=== PATIENT | male | born 1950 | race Caucasian/White ===

== ENCOUNTER 2019-04-25 17:48 | Inpatient (IN) | payer MEDICARE, OTHER ==
[2019-04-25] MEDS ORDERED: SODIUM CHLORIDE 0.9% 1000ML 1,000 ML IVS ONE ×2 (18:18→18:40)
[2019-04-25] MEDS ORDERED: PIPERACILLIN/TAZOBACTAM 3.375 GM in SODIUM CHLORIDE 0.9% 100ML 100 ML IVPB ONE (18:18)
--- NOTE | 2019-04-25 18:23 | ED.PDOC ---
History of Present Illness - General Chief Complaint: Fever Stated Complaint: altered mental status, fever Time Seen by Provider: 04/25/19 18:16 Source: patient, family Exam Limitations: no limitations Additional Information: Mister Stanton is a 69-year-old male who presents to the ED with a chief complaint per daughter of fever and confusion. patient is presently in rehabilitation status post trauma. Approximately 7 weeks ago patient fell from a high ladder and had an open book pelvic fracture, small subdural hemorrhage and subsequent mild cerebellar stroke. Patient was ultimately transferred to [facility] where he underwent an exploratory laparoscopy which showed no intra- abdominal pathology. Patient's pelvic fracture was repaired and patient was transferred to rehabilitation. Today in rehabilitation patient began having chills and shivers and when patient's daughter went to see him patient appeared confused. Daughter indicates that patient is fully back to his baseline normal mentation in the ED now. Patient specifically denies chest pain, shortness of breath, neck stiffness, headache, abdominal pain, and dysuria. Patient indicates that he feels "normal" except for his fever. There are no other complaints at this time. Review of Systems - Review of Systems Constitutional: States: chills, fever EENTM: States: no symptoms reported. Denies: blurred vision, double vision, throat pain Respiratory: States: no symptoms reported. Denies: cough, short of breath Cardiology: States: no symptoms reported. Denies: chest pain, palpitations Gastrointestinal/Abdominal: Denies: abdominal pain, nausea, vomiting Genitourinary: Denies: dysuria Skin: Denies: rash Neurological: States: no symptoms reported Hematologic/Lymphatic: States: no symptoms reported All other Systems: Reviewed and Negative Past Medical History (General) - Patient Medical History Hx Stroke: Yes Hx Congestive Heart Failure: No Hx Hypertension: Yes Hx Diabetes: Yes Hx Gastroesophageal Reflux: Yes Hx MRSA: No - Vaccination History Hx Influenza Vaccination: Yes - 2019 - Social History Hx Tobacco Use: No Hx Alcohol Use: No - Activities of Daily Living Senior Living/Assisted Living (if applicable):: [facility] Family Medical History - Family History Father Family History: Unknown Living Status: Physical Exam - Physical Exam General Appearance: Alert, Comfortable, No apparent distress Eye Exam: right normal, left other - left eye covered with a patch ENT Exam: normal ENT inspection Neck: non-tender, supple, other - patient is in a soft cervical collar for comfo rt. Patient has good ROM within the collar and has no meningismal signs Respiratory: chest non-tender, lungs clear, normal breath sounds, no respiratory distress, no accessory muscle use Cardiovascular/Chest: normal peripheral pulses, no edema, no gallop, no JVD, no murmur, tachycardia Gastrointestinal/Abdominal: normal bowel sounds, soft - patient with considerable erythema and induration to his abdominal laparoscopic surgical wound site. There is a heavy 0 nylon suture extending from the site. There is mild tenderness to palpation. The site is moist with fibrinous exudate. Extremity: non-tender, normal inspection Neurologic: education liaison II-XII nml as tested, no motor/sensory deficits, alert, normal mood/affect, oriented x 3 - patient is readily conversant with no obvious confusion or altered mental status Skin Exam: normal color, warm/dry Lymphatic: no adenopathy Progress - Progress Progress: 04/25/19 18:33 differential diagnosis includes but is not limited to sepsis, pneumonia, intra- abdominal infection, UTI. 04/25/19 18:41 patient has considerable erythema and induration to his abdominal surgical wound and clinically I suspect that this is the source of patient's infection. Patient has no signs or symptoms to suggest meningitis and lumbar puncture/head CT is not warranted at this time. Sepsis protocol followed and patient begun on IV fluids and IV antibiotics. 04/25/19 18:43 EKG: Sinus tachycardia, rate 131, normal QRS, incomplete right bundle branch block, nonspecific ST and T-wave changes. Negative STEMI. 04/25/19 19:09 Patient received morphine 4 mg and Zofran and shortly afterwards began heavily vomiting yellowish green emesis. Patient is now slightly confused and sleepy, this may be from the morphine but I will CT the patient's head to rule out intracranial issues. I'm concerned the patient is an aspiration risk with intra-abdominal infection and possible bowel obstruction and will place NG tube to suction. 04/25/19 22:44 Patient is feeling much better at this time. Patient's CT abdomen and pelvis is unremarkable and shows no evidence of infection or obstruction. Patient's chest x-ray is clear and shows no evidence of pneumonia. Again, patient has no meningeal signs and is completely lucid and there is no concern for meningitis. Patient has not been able to provide a urine sample and we are straight cathetering him at this time. IV Zosyn and vancomycin have been given and patient has been cultured. WBC is slightly elevated at 12 and patient's lactic acid is negative. His flu test is negative. His temperature has come down nicely to 101. Will admit for continued antibiotics and supportive care while a source of infection is investigated and cultures are pending. I have discussed with Dr. Mac who accepts patient for admission. 04/25/19 22:49 04/25/19 23:52 Patient's urinalysis has finally resulted and patient has pyelonephritis. Patient remains comfortable and stable, his systolic pressure has improved to the low 100s and his heart rate is in the 90s. Patient is to be transferred to the floor now. 04/25/19 23:54 EXAM DESCRIPTION: CT Abdomen and Pelvis With Contrast: CLINICAL HISTORY: ulcerative colitis. COMPARISON: None. TECHNIQUE: Contiguous axial sections are obtained through the abdomen and pelvis as per protocol after administration of iodinated contrast. Oral contrast was not administered. . Sagittal and coronal reformations were obtained. Automatic exposure control (AEC), mA and/or kV adjustment by patient size, and/or iterative reconstructive technique was used, per departmental dose optimization program, during the performance of the CT examination. FINDINGS: The dry cell and battery assembler view demonstrates no abnormalities . NG tube is present. The visualized lung bases demonstrates areas of dependent edema in the lung bases and minimal areas of discoid atelectasis. The liver is normal in size and demonstrates normal attenuation and enhancement. [The spleen, pancreas, adrenal glands appear normal in size and attenuation without any focal abnormalities. The gallbladder is absent. Kidneys demonstrate no evidence of calculi. Kidneys are normal in size, shape, attenuation and enhancement. The aorta, IVC and retroperitoneal structures appear normal . The stomach demonstrates No abnormalities. . The small bowel loops appear unremarkable. The appendix is normal . The colon is unremarkable. No evidence of free intraperitoneal fluid or air is noted. CT examination of the pelvis demonstrates no evidence of mass or adenopathy. The urinary bladder appears normal. The [Reproductive organs are unremarkable. Inguinal regions are unremarkable. Prior operative fixation of the pubic symphysis and superior pubic rami with a screw and plate fixation is noted. Is also evidence of a single long screw fixating the left sacroiliac joint. Degenerative changes at L5-S1 with anterolisthesis and bilateral pars interarticularis defect at L5 are noted. Disc degeneration is seen throughout the lumbar spine. Degenerative changes are seen in the right SI joint. IMPRESSION: Normal CT examination of the abdomen and pelvis with contrast. Postsurgical changes in the bony pelvis - Results/Orders Results/Orders: 04/25/19 18:17 Hold Metformin x 48Hrs [id number] URINALYSIS Stat 04/25/19 18:30 Piperacillin/Tazobactam [Zosyn] 3.375 gm Sodium Chloride 0.9% 100Ml [NS (NACL 0.9%) 100ml] 100 ml IVPB Q8H EKG STAT 04/25/19 18:57 INFLUENZA A & B BY PCR Stat 04/25/19 19:06 Suction:Nasogastric PRN Tube(s):Nasogastric,Insertion PRN 04/25/19 19:30 BLOOD CULTURE Stat 04/25/19 21:58 Urine Culture Stat Laboratory Results - last 24 hr 04/25/19 04/25/19 04/25/19 18:15 18:17 21:29 WBC 12.1 H RBC 3.94 L Hgb 12.0 L Hct 35.9 L MCV 91.1 MCH 30.4 MCHC 33.4 RDW 15.4 H Plt Count 217 MPV 7.0 L Absolute Neuts (auto) 11.20 H Absolute Lymphs (auto) 0.40 L Absolute Monos (auto) 0.40 Absolute Eos (auto) 0.10 Absolute Basos (auto) 0.10 Neutrophils % 92.6 H Lymphocytes % 3.2 L Monocytes % 3.1 Eosinophils % 0.4 L Basophils % 0.7 Sodium 139 Potassium 3.7 Chloride 104 Carbon Dioxide 21 Anion Gap 17.7 BUN 18 Creatinine 0.86 BUN/Creatinine Ratio 20.9 H Random Glucose 137 H Serum Osmolality 281.6 Lactic Acid 1.8 Calcium 9.4 Total Bilirubin 0.8 AST 24 ALT 21 Alkaline Phosphatase 74 Serum Total Protein 7.0 Albumin 3.7 Globulin 3.3 Albumin/Globulin Ratio 1.1 Urine Color Urine Appearance Urine pH Ur Specific [place] Urine Protein Urine Glucose (UA) Urine Ketones Urine Blood Urine Nitrite Urine Bilirubin Urine Urobilinogen Ur Leukocyte Esterase Urine RBC Urine WBC Ur Epithelial Cells Urine Bacteria 04/25/19 04/25/19 21:29 21:58 WBC RBC Hgb Hct MCV MCH MCHC RDW Plt Count MPV Absolute Neuts (auto) Absolute Lymphs (auto) Absolute Monos (auto) Absolute Eos (auto) Absolute Basos (auto) Neutrophils % Lymphocytes % Monocytes % Eosinophils % Basophils % Sodium Potassium Chloride Carbon Dioxide Anion Gap BUN Creatinine BUN/Creatinine Ratio Random Glucose Serum Osmolality Lactic Acid 1.5 Calcium Total Bilirubin AST ALT Alkaline Phosphatase Serum Total Protein Albumin Globulin Albumin/Globulin Ratio Urine Color Yellow Urine Appearance Sl cloudy Urine pH 5.5 Ur Specific [place] 1.020 Urine Protein 30 Urine Glucose (UA) Negative Urine Ketones Trace Urine Blood Moderate H Urine Nitrite Negative Urine Bilirubin Negative Urine Urobilinogen 1.0 Ur Leukocyte Esterase Small H Urine RBC 3-5 H Urine WBC 30-40 H Ur Epithelial Cells 0 Urine Bacteria 4+ H Departure - Departure Clinical Impression: Pyelonephritis, Severe sepsis without septic shock Time of Disposition: 22:00 Disposition: Admit Patient Condition: Fair Home Medications: Ambulatory Orders Methylphenidate HCl [Methylphenidate Hydrochlo] 10 mg PO DAILY 04/25/19 Venlafaxine HCl [Venlafaxine HCl ER] 150 mg PO DAILY 04/25/19
[2019-04-25] MEDS ORDERED: PIPERACILLIN/TAZOBACTAM 3.375 GM in SODIUM CHLORIDE 0.9% 100ML 100 ML IVPB SCH (18:30)
[2019-04-25] MEDS ORDERED: MORPHINE SULFATE INJ 10 MG/ML VIAL IV ONE (18:41)
[2019-04-25] MEDS ORDERED: ONDANSETRON INJ 4 MG/2 ML VIAL IV ONE (18:41)
[2019-04-25] MEDS ORDERED: SODIUM CHLORIDE 0.9% 100ML 100 ML IVPB ONE ×2 (18:44→20:14)
[2019-04-25] MEDS ORDERED: PIPERACILLIN/TAZOBACTAM 3.375 GM VIAL IVPB ONE ×2 (18:44→20:13)
[2019-04-25] MEDS: ACETAMINOPHEN 500 MG TAB PO ONE ×2 (18:50→19:05)
[2019-04-25] MEDS ORDERED: ACETAMINOPHEN SUPPOSITORY 650 MG PR ONE ×2 (19:06→19:07)
--- NOTE | 2019-04-25 19:10 | RAD ---
EXAM DESCRIPTION: Chest,1 View CLINICAL HISTORY: 69 years Male, fever COMPARISON: None. FINDINGS: No consolidation. No pneumothorax. No significant pleural effusion. Cardiomediastinal silhouette is unremarkable. Degenerative changes of the spine noted. IMPRESSION: No acute findings. Electronically signed by: Arvind Dee MD 04/25/2019 7:08 PM CDT
[2019-04-25] MEDS ORDERED: VANCOMYCIN HCL INJ 1,000 MG, VANCOMYCIN HCL INJ 500 MG in SODIUM CHLORIDE 0.9% 250ML 25... IVPB ONE (19:52)
--- NOTE | 2019-04-25 20:41 | CT ---
EXAM DESCRIPTION: CT head without contrast. CLINICAL HISTORY: AMS . COMPARISON: None Available. TECHNIQUE: Contiguous axial sections are obtained as per protocol. Sagittal and coronal reformations are submitted Automatic exposure control (AEC), mA and/or kV adjustment by patient size, and/or iterative reconstructive technique was used, per departmental dose optimization program, during the performance of the CT examination. FINDINGS: Ventricles, sulci and cisterns appear normal. Normal denney-white matter differentiation is noted. No evidence of intra or extra-axial hemorrhage, hematoma, mass, mass effect or midline shift is noted. Focal area of decreased attenuation suggestive of encephalomalacia or an acute ischemic stroke is noted in the left inferior cerebellar hemisphere. The bony calvarium appears intact. The soft tissues of the scalp appear unremarkable. Normal appearance of the orbits are noted. The paranasal sinuses and mastoids appear normal. IMPRESSION: Decreased attenuation in the left inferior cerebellum suggestive of encephalomalacic or ischemic infarct. If clinically ischemic CVA is suspected, MRI brain with diffusion-weighted images should be considered. Electronically signed by: Robyn Simmons MD 04/25/2019 8:40 PM CDT
--- NOTE | 2019-04-25 20:53 | CT ---
EXAM DESCRIPTION: CT Abdomen and Pelvis With Contrast: CLINICAL HISTORY: ulcerative colitis. COMPARISON: None. TECHNIQUE: Contiguous axial sections are obtained through the abdomen and pelvis as per protocol after administration of iodinated contrast. Oral contrast was not administered. . Sagittal and coronal reformations were obtained. Automatic exposure control (AEC), mA and/or kV adjustment by patient size, and/or iterative reconstructive technique was used, per departmental dose optimization program, during the performance of the CT examination. FINDINGS: The hand tool filer view demonstrates no abnormalities . NG tube is present. The visualized lung bases demonstrates areas of dependent edema in the lung bases and minimal areas of discoid atelectasis. The liver is normal in size and demonstrates normal attenuation and enhancement. [The spleen, pancreas, adrenal glands appear normal in size and attenuation without any focal abnormalities. The gallbladder is absent. Kidneys demonstrate no evidence of calculi. Kidneys are normal in size, shape, attenuation and enhancement. The aorta, IVC and retroperitoneal structures appear normal . The stomach demonstrates No abnormalities. . The small bowel loops appear unremarkable. The appendix is normal . The colon is unremarkable. No evidence of free intraperitoneal fluid or air is noted. CT examination of the pelvis demonstrates no evidence of mass or adenopathy. The urinary bladder appears normal. The [Reproductive organs are unremarkable. Inguinal regions are unremarkable. Prior operative fixation of the pubic symphysis and superior pubic rami with a screw and plate fixation is noted. Is also evidence of a single long screw fixating the left sacroiliac joint. Degenerative changes at L5-S1 with anterolisthesis and bilateral pars interarticularis defect at L5 are noted. Disc degeneration is seen throughout the lumbar spine. Degenerative changes are seen in the right SI joint. IMPRESSION: Normal CT examination of the abdomen and pelvis with contrast. Postsurgical changes in the bony pelvis. Electronically signed by: Robyn Simmons MD 04/25/2019 8:52 PM CDT
[2019-04-25] MEDS ORDERED: SODIUM CHLORIDE 0.9% 250ML 250 ML ONE (21:20)
[2019-04-25] MEDS ORDERED: VANCOMYCIN HCL INJ 1,000 MG VIAL IVPB ONE (21:20)
[2019-04-25] MEDS ORDERED: VANCOMYCIN HCL INJ 500 MG VIAL ONE (21:20)
[2019-04-25] MEDS ORDERED: SODIUM CHLORIDE 0.9% 1000ML 1,000 ML ONE (22:01)
--- NOTE | 2019-04-25 23:35 | HP ---
SUPERVISING PHYSICIAN: Eric Valverde M.D. CHIEF COMPLAINT: Nausea, vomiting and confusion. HISTORY OF PRESENT ILLNESS: Mr. Del Cid is a 69 year-old male patient who has a long history over the last month that starts with him having a significant fall off of a ladder on March 10 resulting in an open book pelvic fracture. He was sent to [place] and then flown to [facility] where they did an exploratory laparotomy with no findings and internal fixation of a pelvic fracture. He was in ICU for 2 weeks and had 2 separate brain bleeds as well as cerebellar strokes. He has had some issues with double vision and some paresthesias on both upper extremities which has contributed to some trauma to the C6 and C7 area as well as he supposedly was diagnosed with spinal shock. After leaving [facility] he was sent to [facility] on the 24 of March and stayed there until the 18 of April, and then went to [facility] in [place] for a week and then last night was sent to the E. R. via 911 due to the fact that he was having some chills and shivers, and his felt that he was confused. On presentation to the E. R., it was noted by the that the patient was back to his normal mentation. The patient was denying and chest pains, shortness of breath, meningeal signs, headaches, abdominal pains or dysuria. The patient was noting that he "felt normal." Except for the fever, he had no other further complaints. On workup, it was found that he had a mild leukocytosis and a left shift with a white count of 12,100, hemoglobin 12, hematocrit 35.9. Chemistries were all within normal limits with creatinine 0.86. Liver functions were all normal. Lactic acid was 1.8. Calcium was normal at 9.4, however his urine showed a moderate amount of blood and leukocyte esterase with microscopic revealing 30 to 40 WBCs with 4+ bacteria and no epithelial cells. It was also noted on exam that the patient had some drainage coming from his umbilical area from where they had done the exploratory laparotomy. His noted that they had been treating at the rehab with wound VAC and it had been draining, and that she thought they had left 1 stitch in there. The patient vital signs did show that he was febrile on admission with a temperature of 103.8 with a heart rate at 115, blood [id number]/80 and was showing 20 respirations with 93% on room air saturation. He was given Tylenol which did result in the normalization of his temperature. 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 There was also question of whether or not he has an abdominal infection or abscess in the region of the laparotomy incision, so a CT of the abdomen was completed with contrast and there was note per radiology interpretation normal CT exam of the pelvis and abdomen with just postsurgical changes noted within the bony pelvis. He then had a CT of the head given that he has had a previous subarachnoid bleed, the 2 cerebellar strokes and the confusion initially on presentation, and noted by Radiology there was decreased attenuation of the left inferior cerebellum suggestive of encephalomalacia or ischemic stroke. The patient had 1 episode of projective vomiting and according to his he had had an issue while he was in rehab with questionable ileus. At this point the E. R. physician felt like the patient could not be completely ruled out and placed an NG tube. The patient is now going to be admitted for continuation of treatment with concerns for sepsis secondary to urinary tract infection and to further examine the possibility of an intraabdominal infectious process as well as the need for surgical oronasal suction. PAST MEDICAL HISTORY: 1. Hypertension. 2. Type 2 diabetes mellitus. 3. 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 PAST SURGICAL HISTORY: 1. Cholecystectomy. 2. Cataract removals. 3. Internal fixation of pubic symphysis with plate in February with screw fixation on the left sacroiliac joint in February 2019. 4. Exploratory laparotomy status post same level fall with pelvic fracture with no acute findings. HOME MEDICATIONS: 1. Zofran 1 to 2 tabs every 4 hours as needed. 2. Flomax 0.4 mg daily. 3. Sucralfate 1 gram a.c. and h.s. 4. Scopolamine 1.5 mg every third day. 5. Promod 30 mL b.i.d. 6. MiraLAX 17 grams daily. 7. Celebrex 100 mg b.i.d. 8. Sliding scale insulin. 9. Warren 10/325 one every 4 hours as needed. 10. Ritalin 5 mg b.i.d. 11. Melatonin 6 mg at bedtime p.r.n. 12. Levemir 24 units subcue at bedtime. 13. Gabapentin 600 mg t.i.d. 14. Visine AC both eyes b.i.d. 15. Colace 100 mg b.i.d. 16. Zostrix 60 grams topically t.i.d. as needed. 17. Aspirin low dose 81 mg. 18. Famotidine 20 mg daily. 19. Venlafaxine extended release 150 mg daily. ALLERGIES: NO KNOWN DRUG ALLERGIES. FAMILY HISTORY: Father at age 64 due to myocardial infarction. He has 1 brother who has arrhythmia, atrial fibrillation and kidney problems. 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 He does not smoke but has used smokeless tobacco. Does not drink alcohol or illicit drugs. He is . Lives in [place]. REVIEW OF SYSTEMS: CONSTITUTIONAL: Positive for chills, fevers and rigor. HEENT: Negative for any headaches but has positive double vision which is noted from the previous accident. Denies any ear ache, sore throat or significant vision changes or nasal congestion. RESPIRATORY: Denies any coughing, wheezing or shortness of breath. CARDIOVASCULAR: Denies any palpitations, syncopal episodes or chest pains. GASTROINTESTINAL: Denies any abdominal pain but had 1 episode of nausea and vomiting. GENITOURINARY: Denies any dysuria, hematuria or polyuria. NEUROLOGIC: Denies any ataxia or seizures. Cranial nerves II-XII are grossly intact except for noted diplopia with loss of convergence bilaterally with no other neuromotor deficits noted. SKIN: Warm, pink and dry. PHYSICAL EXAMINATION: GENERAL: The patient is resting comfortably in no acute distress. He has an eye patch in place on the left eye. HEENT: Notable strabismus but utilizing the eye path on the left eye. NECK: Supple, non-tender. Full range of motion. CHEST: Lungs are clear to auscultation bilaterally without any rhonchi, wheezing or rales. CARDIOVASCULAR: Regular rate and rhythm without appreciable murmurs, gallops, or rubs. ABDOMEN: Soft, non-tender. Positive bowel sounds. There is noted erythema an induration of abdominal laparoscopic surgical wound with some drainage. There is a heavy #0 nylon suture extending from the site with some fibrinous exudate. EXTREMITIES: No clubbing, cyanosis or edema. NEUROLOGIC: Culture and sensitivity II-XII are grossly intact except as noted for the strabismus. No other motor or sensory deficits noted. He was alert and oriented times three. SKIN: Warm, pink and dry. LABORATORY: CBC showed white count 12,100, hemoglobin 12.0 and platelet count 217. Differential did show a left shift. Chemistries showed normal electrolytes with BUN 0.86. Liver functions were all within normal limits. Calcium was normal at 9.4, lactic acid 1.8. Urinalysis showed a moderate amount of blood with small leukocyte esterase but microscopic revealed 3 to 5 RBCs, 30 to 40 WBCs with no epithelials but 4+ bacteria. MICROBIOLOGY: Influenza A and B by PCR showed to be negative for both A and B. Urine culture is pending. Blood culture is pending. RADIOLOGY: Abdominal and pelvis CT with contrast as noted above with a normal Ct examination of the abdomen and pelvis with contrast with postsurgical changes noted in the bony pelvis. Chest x-ray per radiology interpretation showed no acute findings. EK-lead showed tachycardic at 131 with an incomplete right bundle branch block but nonspecific ST-T wave changes. No indications of acute ischemia or injury pattern. ASSESSMENT: 1. Sepsis with a temperature of 103 and tachycardic, and acute mental status change from baseline with infectious source being identified as a urinary tract infection with cultures pending. 2. Urinary tract infection contributing to #1 with cultures pending. 3. Status post traumatic fall with open book pelvis fracture with internal fixation and exploratory laparotomy with no other acute findings with noted drainage, questionable infection of the laparotomy site around the umbilicus awaiting surgical consultation and cultures of the drainage. 4. Hypertension. 5. Diabetes mellitus type 2. 6. Leukocytosis secondary to #1 with a left shift. 7. History of open book pelvic fracture with limited weightbearing toe touch only. 8. Questionable ileus with some nausea and vomiting with a past history of exploratory laparotomy awaiting surgical consultation. 9. History of previous subarachnoid bleed and cerebrovascular accident due to multiple trauma currently in rehabilitation. PLAN: Mr. Del Cid is going to be admitted for further treatment and evaluation of sepsis secondary to urinary tract infection with concern for possible ileus and abdominal wall infection. I will get a surgical consultation with Dr. Ramirez. Will continue antibiotic coverage but switch him to vancomycin and Meropenem given his high risk for multidrug resistant organisms awaiting final culture results, but will target antibiotic therapy. He will be on insulin sliding scale per protocol. He will be on DVT prophylaxis per protocol. Will get a wound culture of the incision site. Again await consultation with Dr. Ramirez. Will go ahead and continue with IV fluids. Will resume his home medications once those have been updated and verified. Will anticipate his length of stay to be 2 to 3 days. Until he is stable enough to discharge back to outpatient management and return to [facility] will continue to monitor and treat as needed. #[id number] [facility]
[2019-04-26] MEDS ORDERED: MORPHINE SULFATE INJ 10 MG/ML VIAL IV PRN (01:27)
[2019-04-26] MEDS: IV SET AND CAP CHANGE INJ INJ SCH (01:40)
[2019-04-26] MEDS: KCL 20MEQ/D5 1/2NS 1,000 ML IVS PRN ×2 (01:40→15:09)
[2019-04-26] MEDS ORDERED: MEROPENEM 1 GM VIAL IVPB ONE ×3 (01:43→09:49)
[2019-04-26] MEDS ORDERED: SODIUM CHL 0.9% 50ML MIN-BAG+ 50 ML IVPB ONE ×3 (01:43→09:49)
[2019-04-26] MEDS: MEROPENEM 1 GM in SODIUM CHL 0.9% 50ML MIN-BAG+ 50 ML IVPB SCH ×3 (01:44→21:26)
[2019-04-26] MEDS: ACETAMINOPHEN 325 MG TAB PO PRN ×2 (09:30→17:24)
[2019-04-26] MEDS: ONDANSETRON INJ 4 MG/2 ML VIAL IV PRN ×2 (09:45→17:42)
[2019-04-26] MEDS: FAMOTIDINE 20 MG TAB PO SCH ×2 (15:25→20:15)
[2019-04-26] MEDS: GABAPENTIN 300 MG CAP PO SCH ×2 (15:25→20:14)
[2019-04-26] MEDS: VENLAFAXINE HCL TAB 75 MG TAB PO SCH (15:25)
[2019-04-26] MEDS: DOCUSATE SODIUM 100 MG CAP PO SCH ×2 (15:25→20:14)
[2019-04-26] MEDS: CELECOXIB 100 MG CAP PO SCH ×2 (15:25→20:14)
[2019-04-26] MEDS: SCOPOLAMINE PATCH 1.5MG 1 EA TD SCH (15:26)
[2019-04-26] MEDS: TAMSULOSIN 0.4 MG CAP PO SCH (15:26)
[2019-04-26] MEDS: POLYETHYLENE GLYCOL 3350 17 GM PCKT PO SCH (15:26)
[2019-04-26] MEDS ORDERED: CAPSAICIN 0.025% CREAM 60 GM TUBE TOP PRN (15:30)
[2019-04-26] MEDS: ASPIRIN (ENTERIC COATED) 81 MG TAB PO SCH (15:30)
[2019-04-26] MEDS ORDERED: VANCOMYCIN HCL INJ 1,500 MG in SODIUM CHLORIDE 0.9% 250ML 250 ML IVPB ONE (17:01)
[2019-04-26] MEDS ORDERED: ALPRAZolam 0.5 MG TAB PO PRN (17:02)
[2019-04-26] MEDS ORDERED: metFORMIN HCL 500 MG TAB ONE (17:04)
[2019-04-26] MEDS: METHYLPHENIDATE HCL 5 MG PO SCH ×2 (17:05→22:32)
[2019-04-26] MEDS ORDERED: SODIUM CHLORIDE 0.9% 1000ML 1,000 ML ONE (17:06)
[2019-04-26] MEDS ORDERED: VANCOMYCIN HCL INJ 500 MG VIAL ONE (17:09)
[2019-04-26] MEDS ORDERED: SODIUM CHLORIDE 0.9% 250ML 250 ML ONE (17:09)
[2019-04-26] MEDS ORDERED: VANCOMYCIN HCL INJ 1,000 MG VIAL IVPB ONE (17:10)
[2019-04-26] MEDS ORDERED: VANCOMYCIN PER PHARMACY IVPB SCH (17:30)
[2019-04-26] MEDS: SUCRALFATE 1 GM TAB PO SCH ×2 (17:32→20:15)
[2019-04-26] MEDS ORDERED: PROMETHAZINE HCL INJ 25 MG/ML VIAL ONE (19:44)
[2019-04-26] MEDS ORDERED: SODIUM CHLORIDE 0.9% 50ML 50 ML ONE (19:46)
[2019-04-26] MEDS ORDERED: PROMETHAZINE HCL INJ 12.5 MG in SODIUM CHLORIDE 0.9% 50ML 50 ML IVPB ONE (19:50)
[2019-04-26] MEDS: LACTOBACILLUS 1 TAB PO SCH (20:14)
[2019-04-26] MEDS: ENOXAPARIN SODIUM 40 MG/0.4 ML SYG SUBCU SCH (20:27)
[2019-04-26] MEDS: INSULIN DETEMIR 100 UNITS/ML PEN SUBCU SCH (21:43)
[2019-04-26] MEDS: TETRAHYDROZOLINE HCL OPHTH SOL 1 DROP BOTH_EYES SCH (22:32)
[2019-04-26] MEDS: NUTRITIONAL SUPPLEMENTS PO SCH (22:32)
[2019-04-27] MEDS ORDERED: SODIUM CHL 0.9% 50ML MIN-BAG+ 50 ML IVPB ONE ×3 (04:30→19:46)
[2019-04-27] MEDS ORDERED: MEROPENEM 1 GM VIAL IVPB ONE ×3 (04:30→19:48)
[2019-04-27] MEDS: MEROPENEM 1 GM in SODIUM CHL 0.9% 50ML MIN-BAG+ 50 ML IVPB SCH ×3 (04:43→20:19)
[2019-04-27] MEDS: GABAPENTIN 300 MG CAP PO SCH ×3 (08:27→20:17)
[2019-04-27] MEDS: VENLAFAXINE HCL TAB 75 MG TAB PO SCH (08:27)
[2019-04-27] MEDS: FAMOTIDINE 20 MG TAB PO SCH ×2 (08:27→20:18)
[2019-04-27] MEDS: SUCRALFATE 1 GM TAB PO SCH ×4 (08:27→20:17)
[2019-04-27] MEDS: KCL 20MEQ/D5 1/2NS 1,000 ML IVS PRN (08:53)
[2019-04-27] MEDS: CELECOXIB 100 MG CAP PO SCH ×2 (08:54→20:18)
[2019-04-27] MEDS: FERROUS SULFATE 325 MG TAB PO SCH (08:54)
[2019-04-27] MEDS: ASPIRIN (ENTERIC COATED) 81 MG TAB PO SCH (08:55)
[2019-04-27] MEDS: DOCUSATE SODIUM 100 MG CAP PO SCH ×2 (08:55→20:18)
[2019-04-27] MEDS: POLYETHYLENE GLYCOL 3350 17 GM PCKT PO SCH (08:55)
[2019-04-27] MEDS: TAMSULOSIN 0.4 MG CAP PO SCH (08:55)
[2019-04-27] MEDS ORDERED: VANCOMYCIN HCL INJ 1,000 MG VIAL IVPB ONE ×3 (10:31→19:47)
[2019-04-27] MEDS ORDERED: SODIUM CHLORIDE 0.9% 500ML 500 ML ONE ×3 (10:31→19:47)
[2019-04-27] MEDS: VANCOMYCIN HCL INJ 1,750 MG in SODIUM CHLORIDE 0.9% 500ML 500 ML IVPB SCH ×2 (10:47→21:45)
[2019-04-27] MEDS: METHYLPHENIDATE HCL 5 MG PO SCH ×2 (11:00→16:15)
[2019-04-27] MEDS: NUTRITIONAL SUPPLEMENTS PO SCH ×2 (11:00→20:19)
[2019-04-27] MEDS: LACTOBACILLUS 1 TAB PO SCH ×2 (11:39→20:17)
[2019-04-27] MEDS ORDERED: DEXTROSE 50% 25 GM/50 ML SYG IV PRN (12:32)
[2019-04-27] MEDS ORDERED: GLUCAGON INJ 1 MG VIAL SUBCU PRN (12:32)
[2019-04-27] MEDS: TETRAHYDROZOLINE HCL OPHTH SOL 1 DROP BOTH_EYES SCH ×2 (15:55→20:18)
[2019-04-27] MEDS: INSULIN LISPRO 100 UNITS/ML PEN SUBCU SCH ×2 (19:53→20:56)
[2019-04-27] MEDS: ENOXAPARIN SODIUM 40 MG/0.4 ML SYG SUBCU SCH (20:17)
[2019-04-27] MEDS: INSULIN DETEMIR 100 UNITS/ML PEN SUBCU SCH (20:56)
--- NOTE | 2019-04-27 21:36 | PN ---
DATE: SUPERVISING PHYSICIAN: Eric Valverde M.D. SUBJECTIVE: The patient had run an intermittent fever yesterday with some rigors. I was called this morning that one of his blood cultures came up positive with a gram variable bacilli. The patient since the episodes yesterday has been afebrile. This morning he looks good. He reports that he feels much better. He does remain on vancomycin and Meropenem. He has had no further complaints of any nausea or vomiting, although he says he has not had a good bowel movement in several days but denies any pain. OBJECTIVE: VITAL SIGNS: T max 103.2 yesterday, 04/26/19 at 1700. No temperatures since that time with the max temperature being at exam of 97.9. Vital signs are showing to be stable. Current blood pressure is 111/60, respirations 20, satting 94% on room air. I's and O's are showing a positive balance of 1500. Weight 100.0 kg. I am not sure how accurate that is because his admission weight was 89.2 kg. GENERAL: The patient is resting comfortably this morning. He appears to be in no acute distress. He has an eye path in place on his left eye and is alert. CHEST: Lungs were clear to auscultation. HEART: Regular rate and rhythm. ABDOMEN: Positive bowel sounds. The surgical site still has some drainage from the umbilical area which is kind of serous to yellow. Cultures are pending on that. EXTREMITIES: Without any edema. Distally pulses are strong. Capillary refill is brisk. NEUROLOGIC: He is alert and oriented times three. LABORATORY: White count now has normalized to 5,900, hemoglobin 10.8, hematocrit 32.2, platelet count 163,000. Differential does show a left shift that has resolved. Chemistries are showing stable renal function with creatinine 0.69. Electrolytes are stable. Glucoses have ranged between 89 and 151. Lactic acid yesterday when he was running a fever was 1.8, calcium 8.3. MICROBIOLOGY: Blood cultures came up positive with gram variable bacilli. Sensitivity on that is pending. Urine culture is still pending. Influenza A and B by PCR was negative. Wound culture from the umbilicus is pending. He does have a second set of blood cultures from yesterday's fever that are currently negative. RADIOLOGY: No radiographic studies today. ASSESSMENT: 1. Sepsis secondary to a gram variable bacilli bacteremia, likely origin of source is urinary tract infection with cultures pending. 2. Sepsis with a temperature of 103 and tachycardic, and acute mental status change due to #1. 3. Urinary tract infection with cultures pending. 4. Status post traumatic fall with open book pelvis fracture with internal fixation of pubic symphysis and superior pubic rami with screw and plate fixation, and exploratory laparotomy with no other acute findings and noted drainage, questionable infection of the laparotomy site around the umbilicus awaiting surgical results. 5. Hypertension. 6. Diabetes mellitus type 2. 7. Previous open book pelvic fracture with stabilization open reduction and internal fixation of the left sacroiliac joint with the patient having limited weightbearing on the left awaiting orthopedic consultation and physical therapy evaluation. 8. History of previous subarachnoid bleeds status post same level fall associated with other additional cerebrovascular accidents with cerebellar stroke from multiple head trauma currently having been in rehabilitation with speech, OT and physical therapy. 9. 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 PLAN: Mr. Del Cid currently has antibiotic coverage with vancomycin and Meropenem for empiric coverage of the urinary tract infection and associated gram variable bacilli bacteremia. He is responding well to treatment. Will continue with current antibiotic regimen and await final culture results. He remains on DVT prophylaxis per protocol. Wound culture is still pending. Blood cultures were collected after the fever. Those are pending. Will await those results to further target antibiotic therapy as needed. He will have an evaluation with Physical Therapy tomorrow and I would like to see if Dr. Camarena would see the patient when he gets back either Sunday or Sunday in consultation and have requested that the family bring their Discharge Summary and operative reports as well as imaging studies from [facility] if available. They have agreed to bring those as soon as they can. We did discuss that once the patient is stable medically they would like to, if possible, return back to [facility] for continued rehabilitation but this time through [facility] in [place]. Will need to call Mariah for that consultation. Once we get cultures back certainly it would not be a bad thing to discuss treatment plan with Dr. Curiel, given that he does have hardware in place in the pelvis, for help with further management of antibiotic treatment. Dr. Ramirez has seen the patient in consultation. Will saline lock him today as he is taking adequate oral intake. I have encouraged good bronchial hygiene. I have encouraged that we need to work on making sure he is having bowel movements to prevent an ileus and he is toe touch in the left but he has family members who know how to help transfer, and I have requested nursing but a bedside commode until Physical therapy can fully evaluate the patient. Anticipate that our culture results probably will not be back at least until late Sunday or Sunday. Until then will continue to cover empirically with vancomycin and Meropenem. Until we can transition him back to outpatient management will continue to monitor and treat as needed. [facility][id number] [facility]
[2019-04-28] MEDS ORDERED: SODIUM CHL 0.9% 50ML MIN-BAG+ 50 ML IVPB ONE ×3 (01:35→19:35)
[2019-04-28] MEDS ORDERED: MEROPENEM 1 GM VIAL IVPB ONE ×3 (01:36→19:36)
[2019-04-28] MEDS: MEROPENEM 1 GM in SODIUM CHL 0.9% 50ML MIN-BAG+ 50 ML IVPB SCH ×3 (05:08→20:47)
[2019-04-28] MEDS: HYDROcodone 10MG/APAP 325MG 1 EA TAB PO PRN (05:13)
[2019-04-28] MEDS: SUCRALFATE 1 GM TAB PO SCH ×4 (06:12→20:46)
[2019-04-28] MEDS: INSULIN LISPRO 100 UNITS/ML PEN SUBCU SCH ×4 (07:37→20:43)
[2019-04-28] MEDS ORDERED: SODIUM CHLORIDE 0.9% 500ML 500 ML ONE ×2 (08:12→19:36)
[2019-04-28] MEDS ORDERED: VANCOMYCIN HCL INJ 1,000 MG VIAL IVPB ONE ×2 (08:12→19:36)
[2019-04-28] MEDS: CELECOXIB 100 MG CAP PO SCH ×2 (08:33→20:45)
[2019-04-28] MEDS: ASPIRIN (ENTERIC COATED) 81 MG TAB PO SCH (08:33)
[2019-04-28] MEDS: FERROUS SULFATE 325 MG TAB PO SCH (08:33)
[2019-04-28] MEDS: TAMSULOSIN 0.4 MG CAP PO SCH (08:35)
[2019-04-28] MEDS: METHYLPHENIDATE HCL 5 MG PO SCH ×2 (08:35→13:27)
[2019-04-28] MEDS: POLYETHYLENE GLYCOL 3350 17 GM PCKT PO SCH (08:36)
[2019-04-28] MEDS: GABAPENTIN 300 MG CAP PO SCH ×3 (08:36→20:46)
[2019-04-28] MEDS: DOCUSATE SODIUM 100 MG CAP PO SCH ×2 (08:36→20:45)
[2019-04-28] MEDS: FAMOTIDINE 20 MG TAB PO SCH ×2 (08:36→20:45)
[2019-04-28] MEDS: LACTOBACILLUS 1 TAB PO SCH ×2 (08:36→20:45)
[2019-04-28] MEDS: VENLAFAXINE HCL TAB 75 MG TAB PO SCH (08:37)
[2019-04-28] MEDS: TETRAHYDROZOLINE HCL OPHTH SOL 1 DROP BOTH_EYES SCH ×2 (09:57→20:47)
[2019-04-28] MEDS: NUTRITIONAL SUPPLEMENTS PO SCH ×2 (09:57→20:47)
[2019-04-28] MEDS: VANCOMYCIN HCL INJ 1,750 MG in SODIUM CHLORIDE 0.9% 500ML 500 ML IVPB SCH ×2 (11:01→22:52)
--- NOTE | 2019-04-28 20:41 | PN ---
DATE: 04/28/19 SUPERVISING PHYSICIAN: Denis Vu M.D. SUBJECTIVE: The patient is sitting up in his wheelchair in his room. He has just finished physical therapy. He feels that he is getting somewhat stronger but has some shortness of breath with exertion. He still feels quite weak. Denies any chest pain, nausea or vomiting. OBJECTIVE: VITAL SIGNS: Temperature 98.2, heart rate 60, blood pressure 126/76, respiratory rate 18, O2 sat 92% on room air. RESPIRATORY: Essentially clear to auscultation and palpation bilaterally but he is somewhat diminished at the bases. CARDIAC: Regular rate and rhythm. GASTROINTESTINAL: Abdomen is soft, nondistended, non-tender. There is a small amount of drainage from the surgical site at the umbilicus. It is serous. EXTREMITIES: Bilateral pedal pulses are palpable at +2. There is no edema noted. NEUROLOGIC: He is awake, alert and oriented times three. LABORATORY: Blood sugars have run between 97 and 136. Preliminary blood cultures show no growth after 48 hours. Wound culture is pending. All other labs and films have been reviewed via the EMR. ASSESSMENT: 1. Sepsis secondary to a gram variable bacilli bacteremia, likely origin of source is urinary tract infection with cultures pending. 2. Sepsis with a temperature of 103 and tachycardic, and acute mental status change due to #1. 3. Urinary tract infection with cultures pending. 4. Status post traumatic fall with open book pelvis fracture with internal fixation of pubic symphysis and superior pubic rami with screw and plate fixation, and exploratory laparotomy with no other acute findings and noted drainage, questionable infection of the laparotomy site around the umbilicus awaiting surgical results. 5. Hypertension. 6. Diabetes mellitus type 2. 7. Previous open book pelvic fracture with stabilization open reduction and internal fixation of the left sacroiliac joint with the patient having limited weightbearing on the left awaiting orthopedic consultation and physical therapy evaluation. 8. History of previous subarachnoid bleeds status post same level fall associated with other additional cerebrovascular accidents with cerebellar stroke from multiple head trauma currently having been in rehabilitation with speech, OT and physical therapy. 9. 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 PLAN: We will continue present supportive care. Mr. Del Cid currently has antibiotic coverage with vancomycin and Meropenem. Will continue with those antibiotics until his final culture results. He will continue with physical therapy for strengthening and conditioning. Tomorrow Dr. Camarena is here and I have consulted him. Hopefully we can get some recommendations for his continued physical therapy. Once the patient is medically stable we should be able to transfer him to [facility] in [place]. After the culture results are finalized, it may be helpful to call Dr. Curiel for recommendations on antibiotic coverage as well as length of regimen. I have ordered wound care for his incision and I will hold off on labs. At this time will continue to monitor closely and follow as needed. [facility][id number] [facility]
[2019-04-28] MEDS: ENOXAPARIN SODIUM 40 MG/0.4 ML SYG SUBCU SCH (20:44)
[2019-04-28] MEDS: INSULIN DETEMIR 100 UNITS/ML PEN SUBCU SCH (20:46)
[2019-04-28] MEDS ORDERED: VANCOMYCIN HCL INJ 1,500 MG in SODIUM CHLORIDE 0.9% 500ML 500 ML IVPB SCH (22:51)
[2019-04-28] MEDS ORDERED: VANCOMYCIN HCL IVPB SCH (22:55)
[2019-04-28] MEDS ORDERED: SODIUM CHLORIDE 0.9% IVPB SCH (22:55)
[2019-04-28] MEDS ORDERED: SODIUM CHLORIDE 0.9% 250ML 250 ML ONE (22:55)
[2019-04-29] MEDS ORDERED: SODIUM CHL 0.9% 50ML MIN-BAG+ 50 ML IVPB ONE ×4 (00:41→19:27)
[2019-04-29] MEDS ORDERED: MEROPENEM 1 GM VIAL IVPB ONE ×4 (00:41→19:27)
[2019-04-29] MEDS: IV SET AND CAP CHANGE INJ INJ SCH (04:11)
[2019-04-29] MEDS: MEROPENEM 1 GM in SODIUM CHL 0.9% 50ML MIN-BAG+ 50 ML IVPB SCH ×3 (05:28→20:39)
[2019-04-29] MEDS: SUCRALFATE 1 GM TAB PO SCH ×4 (06:40→20:16)
[2019-04-29] MEDS: FERROUS SULFATE 325 MG TAB PO SCH (07:50)
[2019-04-29] MEDS: VENLAFAXINE HCL TAB 75 MG TAB PO SCH (07:50)
[2019-04-29] MEDS: METHYLPHENIDATE HCL 5 MG PO SCH ×2 (08:02→12:27)
[2019-04-29] MEDS: INSULIN LISPRO 100 UNITS/ML PEN SUBCU SCH ×4 (08:03→20:44)
[2019-04-29] MEDS: NUTRITIONAL SUPPLEMENTS PO SCH ×2 (08:08→20:15)
[2019-04-29] MEDS: HYDROcodone 10MG/APAP 325MG 1 EA TAB PO PRN (08:11)
[2019-04-29] MEDS: TAMSULOSIN 0.4 MG CAP PO SCH (08:21)
[2019-04-29] MEDS: CELECOXIB 100 MG CAP PO SCH ×2 (08:21→20:16)
[2019-04-29] MEDS: FAMOTIDINE 20 MG TAB PO SCH ×2 (08:21→20:17)
[2019-04-29] MEDS: ASPIRIN (ENTERIC COATED) 81 MG TAB PO SCH (08:22)
[2019-04-29] MEDS: DOCUSATE SODIUM 100 MG CAP PO SCH ×2 (09:00→20:16)
[2019-04-29] MEDS: LACTOBACILLUS 1 TAB PO SCH ×2 (09:00→20:17)
[2019-04-29] MEDS: TETRAHYDROZOLINE HCL OPHTH SOL 1 DROP BOTH_EYES SCH ×2 (09:00→20:17)
[2019-04-29] MEDS: GABAPENTIN 300 MG CAP PO SCH ×3 (09:00→20:17)
[2019-04-29] MEDS: POLYETHYLENE GLYCOL 3350 17 GM PCKT PO SCH (09:00)
[2019-04-29] MEDS ORDERED: SODIUM CHLORIDE 0.9% 500ML 500 ML ONE ×2 (12:00→19:24)
[2019-04-29] MEDS ORDERED: VANCOMYCIN HCL INJ 500 MG VIAL ONE ×2 (12:00→19:23)
[2019-04-29] MEDS ORDERED: VANCOMYCIN HCL INJ 1,000 MG VIAL IVPB ONE ×2 (12:01→19:24)
[2019-04-29] MEDS: VANCOMYCIN HCL IVPB SCH ×2 (12:04→22:42)
[2019-04-29] MEDS: [UNRECOGNIZED DRUG - OTHER] IVPB SCH ×2 (12:04→22:42)
[2019-04-29] MEDS: SCOPOLAMINE PATCH 1.5MG 1 EA TD SCH (15:02)
[2019-04-29] MEDS ORDERED: SODIUM CHLORIDE 0.9% 250ML 250 ML ONE (19:26)
[2019-04-29] MEDS: SODIUM CHLORIDE 0.9% (FLUSH) 10 ML SYG IV PRN (20:17)
[2019-04-29] MEDS: ENOXAPARIN SODIUM 40 MG/0.4 ML SYG SUBCU SCH (20:17)
[2019-04-29] MEDS: INSULIN DETEMIR 100 UNITS/ML PEN SUBCU SCH (20:45)
--- NOTE | 2019-04-29 21:57 | PN ---
DATE: 04/29/19 SUPERVISING PHYSICIAN: Denis Vu M.D. SUBJECTIVE: The patient is sitting up in his wheelchair. His daughter and are at the bedside. We discussed at length his present plan of care about his sepsis as well as possibilities for his rehab after discharge. The patient denies shortness of breath, chest pain, nausea or vomiting. OBJECTIVE: VITAL SIGNS: Temperature 98, heart rate 80, blood pressure 132/77, respiratory rate 18, O2 sat 95% on room air. RESPIRATORY: Essentially clear to auscultation bilaterally. CARDIAC: Regular rate and rhythm. GASTROINTESTINAL: Abdomen is soft, nondistended, non-tender. Bowel sounds are positive. NEUROLOGIC: He is awake, alert and oriented times three. LABORATORY: His blood sugars have run between 94 and 270. Urine culture has resulted in Klebsiella pneumoniae pansensitive to all by Ampicillin. Preliminary blood culture shows Klebsiella oxytoca. It is also sensitive to everything but Ampicillin. Preliminary wound culture shows moderate Staphylococcus species. All other labs and films have been reviewed via the EMR. ASSESSMENT: 1. Sepsis secondary to gram variable bacilli most likely secondary to a urinary tract infection with Klebsiella pneumoniae, positive blood culture with Klebsiella oxytoca and wound culture that is positive for Staphylococcus species. He had an admitting temperature of 103 with tachycardia and some acute mental status changes. 2. Urinary tract infection. 3. Status post traumatic fall with open book pelvis fracture with internal fixation of pubic symphysis and superior pubic rami with screw and plate fixation, and exploratory laparotomy with no other acute findings and noted drainage, questionable infection of the laparotomy site around the umbilicus awaiting surgical results. 4. Hypertension. 5. Diabetes mellitus type 2. 6. Previous open book pelvic fracture with stabilization open reduction and internal fixation of the left sacroiliac joint with the patient having limited weightbearing on the left awaiting orthopedic consultation and physical therapy evaluation. 7. History of previous subarachnoid bleeds status post same level fall associated with other additional cerebrovascular accidents with cerebellar stroke from multiple head trauma currently having been in rehabilitation with speech, OT and physical therapy. 8. 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 PLAN: We will continue present supportive care. I discussed at length with the family today about his plan of care, especially given his positive blood culture, urine culture and pending wound culture. I will speak with Dr. Curiel, Infectious Diseases physician, tomorrow to see how long we should continue his antibiotic treatment. Dr. Camarena called and said that he would see the patient tomorrow. At this point he will most likely be nonweightbearing for 10 weeks or so, but I will leave that up to Dr. Camarena. For now will make sure he gets his antibiotic treatments and the physical therapy needed for now. He may need to be put in Swing Bed for antibiotic therapy. Will continue him on Merrem and vancomycin. Will continue to monitor closely and follow as needed. #[id number] [facility]
[2019-04-30] MEDS: MEROPENEM 1 GM in SODIUM CHL 0.9% 50ML MIN-BAG+ 50 ML IVPB SCH (04:55)
[2019-04-30] MEDS: SUCRALFATE 1 GM TAB PO SCH ×4 (06:11→20:19)
[2019-04-30] MEDS: INSULIN LISPRO 100 UNITS/ML PEN SUBCU SCH ×4 (07:14→21:22)
[2019-04-30] MEDS: VENLAFAXINE HCL TAB 75 MG TAB PO SCH (08:39)
[2019-04-30] MEDS: LACTOBACILLUS 1 TAB PO SCH ×2 (08:39→20:20)
[2019-04-30] MEDS: FERROUS SULFATE 325 MG TAB PO SCH (08:39)
[2019-04-30] MEDS: METHYLPHENIDATE HCL 5 MG PO SCH ×2 (08:39→11:38)
[2019-04-30] MEDS: DOCUSATE SODIUM 100 MG CAP PO SCH ×2 (08:40→20:20)
[2019-04-30] MEDS: TAMSULOSIN 0.4 MG CAP PO SCH (08:47)
[2019-04-30] MEDS: CELECOXIB 100 MG CAP PO SCH ×2 (08:47→20:19)
[2019-04-30] MEDS: GABAPENTIN 300 MG CAP PO SCH ×3 (08:47→20:20)
[2019-04-30] MEDS: ASPIRIN (ENTERIC COATED) 81 MG TAB PO SCH (08:48)
[2019-04-30] MEDS: NUTRITIONAL SUPPLEMENTS PO SCH ×2 (08:48→20:12)
[2019-04-30] MEDS: POLYETHYLENE GLYCOL 3350 17 GM PCKT PO SCH (08:49)
[2019-04-30] MEDS: TETRAHYDROZOLINE HCL OPHTH SOL 1 DROP BOTH_EYES SCH ×2 (08:49→20:21)
[2019-04-30] MEDS: FAMOTIDINE 20 MG TAB PO SCH ×2 (08:49→20:20)
--- NOTE | 2019-04-30 09:41 | PN ---
SUPERVISING PHYSICIAN: Will Vu MD DATE: 04/30/19 SUBJECTIVE: The patient is sitting in his wheelchair. He has just completed his physical therapy for the morning. I explained to him and his that he would have to have [address] Curiel. We discussed his discharge planning. The patient denies shortness of breath, chest pain, nausea or vomiting. OBJECTIVE: VITAL SIGNS: Temperature 97.9. Heart rate 54. Blood pressure 152/77. Respiratory rate 20. O2 saturation 99% on room air. RESPIRATORY: Essentially clear to auscultation bilaterally. CARDIAC: Regular rate and rhythm. He is slightly bradycardic. GASTROINTESTINAL: Abdomen is soft, nondistended, nontender. His dressing to his abdomen is dry and intact. NEUROLOGIC: He is awake, alert and oriented times three. LABORATORY: His blood sugars have run between 83 and 209. Wound culture continues to be pending. All other labs and films have been reviewed via the EMR. ASSESSMENT: 1. Sepsis secondary to gram variable bacilli most likely secondary to a urinary tract infection with Klebsiella pneumoniae, positive blood culture with Klebsiella oxytoca and wound culture that is positive for Staphylococcus species. He had an admitting temperature of 103 with tachycardia and some acute mental status changes. 2. Urinary tract infection. 3. Status post traumatic fall with open book pelvis fracture with internal fixation of pubic symphysis and superior pubic rami with screw and plate fixation, and exploratory laparotomy with no other acute findings and noted drainage, questionable infection of the laparotomy site around the umbilicus awaiting surgical results. 4. Hypertension. 5. Diabetes mellitus, type 2. 6. Previous open book pelvic fracture with stabilization open reduction and internal fixation of the left sacroiliac joint with the patient having limited weightbearing on the left awaiting orthopedic consultation and physical therapy evaluation. 7. 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 8. 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 PLAN: We will continue present supportive care. I spoke with Dr. Curiel, infectious diseases physician in [place], and I have reported the culture and sensitivities of his urine and blood culture and that we were pending his wound culture. Given his history and his hardware as well as his multiple traumas, she felt we should treat the wound with vancomycin until the sensitivities are back. She said we could discontinue the Merrem and change him to ceftriaxone 2 grams daily and he would need at least 2 weeks of antibiotic coverage. We are to call her as soon as the wound culture sensitivities are complete. I will hold on lab for right now. We will continue to monitor those culture results. We will continue the physical therapy as previously ordered. Depending on his antibiotic IV therapy, he will most likely got to [facility] for antibiotic therapy or he will stay here in Swing Bed until his IV antibiotic is completed. We will continue to monitor the patient closely and follow as needed. #[id number] [facility]
[2019-04-30] MEDS ORDERED: SODIUM CHL 0.9% 50ML MIN-BAG+ 50 ML IVPB ONE (10:02)
[2019-04-30] MEDS: HYDROcodone 10MG/APAP 325MG 1 EA TAB PO PRN (10:58)
[2019-04-30] MEDS: cefTRIAXone SODIUM 2 GM in SODIUM CHL 0.9% 100ML MINI-BAG 100 ML IVPB SCH (11:00)
[2019-04-30] MEDS ORDERED: VANCOMYCIN HCL IVPB SCH (11:00)
[2019-04-30] MEDS ORDERED: [UNRECOGNIZED DRUG - OTHER] IVPB SCH (11:00)
[2019-04-30] MEDS ORDERED: VANCOMYCIN HCL INJ 500 MG VIAL ONE ×2 (11:03→19:14)
[2019-04-30] MEDS ORDERED: SODIUM CHLORIDE 0.9% 500ML 500 ML ONE (11:03)
[2019-04-30] MEDS ORDERED: VANCOMYCIN HCL INJ 1,000 MG VIAL IVPB ONE ×2 (11:04→19:15)
[2019-04-30] MEDS: [UNRECOGNIZED DRUG - OTHER] IVPB SCH (11:18)
[2019-04-30] MEDS: VANCOMYCIN HCL IVPB SCH (11:18)
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
[2019-04-30] MEDS ORDERED: SODIUM CHLORIDE 0.9% 250ML 250 ML ONE (19:14)
[2019-04-30] MEDS: ENOXAPARIN SODIUM 40 MG/0.4 ML SYG SUBCU SCH (20:20)
[2019-04-30] MEDS: SODIUM CHLORIDE 0.9% (FLUSH) 10 ML SYG IV PRN (20:21)
[2019-04-30] MEDS: INSULIN DETEMIR 100 UNITS/ML PEN SUBCU SCH (21:22)
[2019-04-30] MEDS: VANCOMYCIN HCL INJ 1,000 MG, VANCOMYCIN HCL INJ 250 MG in SODIUM CHLORIDE 0.9% 250ML 25... IVPB SCH (22:45)
[2019-05-01] MEDS: SUCRALFATE 1 GM TAB PO SCH ×5 (06:25→20:29)
[2019-05-01] MEDS: ASPIRIN (ENTERIC COATED) 81 MG TAB PO SCH (08:20)
[2019-05-01] MEDS: GABAPENTIN 300 MG CAP PO SCH ×3 (08:20→20:31)
[2019-05-01] MEDS: VENLAFAXINE HCL TAB 75 MG TAB PO SCH (08:21)
[2019-05-01] MEDS: TAMSULOSIN 0.4 MG CAP PO SCH (08:22)
[2019-05-01] MEDS: LACTOBACILLUS 1 TAB PO SCH ×2 (08:22→20:30)
[2019-05-01] MEDS: CELECOXIB 100 MG CAP PO SCH ×2 (08:22→20:29)
[2019-05-01] MEDS: FAMOTIDINE 20 MG TAB PO SCH ×2 (08:22→20:31)
[2019-05-01] MEDS: DOCUSATE SODIUM 100 MG CAP PO SCH ×2 (08:22→20:30)
[2019-05-01] MEDS: FERROUS SULFATE 325 MG TAB PO SCH (08:23)
[2019-05-01] MEDS: TETRAHYDROZOLINE HCL OPHTH SOL 1 DROP BOTH_EYES SCH ×2 (08:23→20:32)
[2019-05-01] MEDS: METHYLPHENIDATE HCL 5 MG PO SCH ×2 (08:24→11:34)
[2019-05-01] MEDS: POLYETHYLENE GLYCOL 3350 17 GM PCKT PO SCH (08:24)
[2019-05-01] MEDS: NUTRITIONAL SUPPLEMENTS PO SCH ×2 (08:25→21:53)
[2019-05-01] MEDS: HYDROcodone 10MG/APAP 325MG 1 EA TAB PO PRN (08:30)
[2019-05-01] MEDS: INSULIN LISPRO 100 UNITS/ML PEN SUBCU SCH ×4 (08:34→21:33)
[2019-05-01] MEDS ORDERED: SODIUM CHL 0.9% 100ML MINI-BAG 100 ML IVPB ONE (09:23)
[2019-05-01] MEDS: cefTRIAXone SODIUM 2 GM in SODIUM CHL 0.9% 100ML MINI-BAG 100 ML IVPB SCH (09:49)
[2019-05-01] MEDS: VANCOMYCIN HCL INJ 1,000 MG, VANCOMYCIN HCL INJ 250 MG in SODIUM CHLORIDE 0.9% 250ML 25... IVPB SCH ×2 (11:00→22:58)
--- NOTE | 2019-05-01 14:04 | PN ---
SUPERVISING PHYSICIAN: Will Vu MD DATE: 05/01/19 SUBJECTIVE: The patient is sitting up in his chair. His is at the bedside. We discussed his discharge planning. He has no complaints of nausea, vomiting, diarrhea, shortness of breath or chest pain. I explained that I talked with Dr. Curiel today and that he would need 14 additional days of IV antibiotic therapy and she preferred to have those done here at the hospital. OBJECTIVE: VITAL SIGNS: Temperature 98.1. Heart rate 56. Blood pressure 164/84. Respiratory rate 18. O2 saturation 94% on room air. RESPIRATORY: Essentially clear to auscultation bilaterally. CARDIAC: Regular rate and rhythm. NEUROLOGIC: He is awake, alert and oriented times three. LABORATORY: His blood sugars have run between 83 and 145. The culture to his abdomen is MRSA and is sensitive to vancomycin as well as doxycycline. All other labs and films have been reviewed via the EMR. ASSESSMENT: 1. Sepsis secondary to gram variable bacilli most likely secondary to a urinary tract infection with Klebsiella pneumoniae, positive blood culture with Klebsiella oxytoca and wound culture that is positive for MRSA. He had an admitting temperature of 103 with tachycardia and some acute mental status changes. 2. Urinary tract infection. 3. Status post traumatic fall with open book pelvis fracture with internal fixation of pubic symphysis and superior pubic rami with screw and plate fixation, and exploratory laparotomy with no other acute findings and noted drainage, questionable infection of the laparotomy site around the umbilicus awaiting surgical results. 4. Hypertension. 5. Diabetes mellitus, type 2. 6. Previous open book pelvic fracture with stabilization open reduction and internal fixation of the left sacroiliac joint with the patient having limited weightbearing on the left awaiting orthopedic consultation and physical therapy evaluation. 7. 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 8. 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 PLAN: We will continue present supportive care. At this point, he has lost his IV site, so he will get a PICC line today. He will be discharged from the Acute Care setting tomorrow and readmitted to Swing Bed status. He has an appointment with his orthopedic surgeon in [place] on Sunday. At the request of Dr. Camarena as well as Dr. Fermin, they are to get an updated plan of care for his postoperative orders. He is to go to that appointment on Sunday. Dr. Curiel suggested we have 14 days of 2 grams of Rocephin daily as well as vancomycin per pharmacy protocol starting today for 14 days. After discharge from Swing Bed and completion of the vancomycin and erythromycin, he is to have 4 weeks of oral doxycycline and cefpodoxime. His discharge at that time will be up to Dr. Camarena and the postoperative plan of care per his surgeon in [place]. I will do one set of labs tomorrow and then he can be discharged from the Acute Care setting. We will continue to monitor the patient closely and follow as needed. #[id number] [facility]
[2019-05-01] MEDS ORDERED: VANCOMYCIN HCL INJ 500 MG VIAL ONE (19:05)
[2019-05-01] MEDS ORDERED: SODIUM CHLORIDE 0.9% 250ML 250 ML ONE (19:05)
[2019-05-01] MEDS ORDERED: VANCOMYCIN HCL INJ 1,000 MG VIAL IVPB ONE (19:07)
--- NOTE | 2019-05-01 20:07 | RAD ---
EXAM DESCRIPTION: Chest,1 View CLINICAL HISTORY: 69 years Male PICC Line Placement COMPARISON: Portable chest dated 04/25/2019 TECHNIQUE: Portable AP view of the chest is obtained. FINDINGS IN THE CHEST: Heart: Allowing for magnification factors related to AP portable technique and body habitus, the heart is normal in size and configuration. Vasculature: [] There is no evidence of aortic aneurysm or acute findings. The pulmonary vascularity is normal. Mediastinum: No evidence of mass or adenopathy. Lungs: There is some increased density in the left base which obscures the left hemidiaphragm concerning for atelectasis and/or pneumonia. Pleura: There are no pleural effusions. However the left costophrenic angle is not fully demonstrated There are no pneumothoraces. Osseous structures: No evidence of acute fracture or other significant osseous abnormalities. Tubes and catheters: A right peripherally inserted central venous catheter lies with its tip projecting along the proximal superior vena cava. Chest wall: Unremarkable. Visualized Abdomen: Unremarkable. IMPRESSION: Patchy atelectasis and/or pneumonia in the left lower lung. Remainder of findings as described above. Electronically signed by: Gabby Ocampo MD 05/01/2019 8:05 PM CDT
[2019-05-01] MEDS: ENOXAPARIN SODIUM 40 MG/0.4 ML SYG SUBCU SCH (20:31)
[2019-05-01] MEDS: INSULIN DETEMIR 100 UNITS/ML PEN SUBCU SCH (21:34)
[2019-05-02] MEDS: IV SET AND CAP CHANGE INJ INJ SCH (01:30)
[2019-05-02 03:19] VITALS: TEMP 98.2
[2019-05-02] MEDS: SUCRALFATE 1 GM TAB PO SCH ×2 (06:39→11:29)
[2019-05-02] MEDS ORDERED: SODIUM CHL 0.9% 100ML MINI-BAG 100 ML IVPB ONE (07:13)
[2019-05-02] MEDS: INSULIN LISPRO 100 UNITS/ML PEN SUBCU SCH ×2 (07:18→11:43)
--- NOTE | 2019-05-02 07:53 | RAD ---
EXAM DESCRIPTION: Chest,2 Views CLINICAL HISTORY: 69 years Male, extended hospitalization COMPARISON: May 01, 2019 FINDINGS: Heart size and pulmonary vessels are within normal limits. There is no pneumothorax or pleural effusion. Right-sided PICC tip overlying the SVC. Improved bibasilar atelectasis. No focal consolidation. The soft tissues are unremarkable. No acute osseous findings. IMPRESSION: No acute cardiopulmonary abnormality. Electronically signed by: Bishnu Ritchie MD 05/02/2019 7:51 AM CDT
[2019-05-02] MEDS: GABAPENTIN 300 MG CAP PO SCH (08:24)
[2019-05-02] MEDS: VENLAFAXINE HCL TAB 75 MG TAB PO SCH (08:24)
[2019-05-02] MEDS: TAMSULOSIN 0.4 MG CAP PO SCH (08:24)
[2019-05-02] MEDS: ASPIRIN (ENTERIC COATED) 81 MG TAB PO SCH (08:24)
[2019-05-02] MEDS: DOCUSATE SODIUM 100 MG CAP PO SCH (08:25)
[2019-05-02] MEDS: CELECOXIB 100 MG CAP PO SCH (08:25)
[2019-05-02] MEDS: FERROUS SULFATE 325 MG TAB PO SCH (08:25)
[2019-05-02] MEDS: LACTOBACILLUS 1 TAB PO SCH (08:25)
[2019-05-02] MEDS: FAMOTIDINE 20 MG TAB PO SCH (08:25)
[2019-05-02] MEDS: SODIUM CHLORIDE 0.9% (FLUSH) 10 ML SYG IV PRN (08:25)
[2019-05-02] MEDS: cefTRIAXone SODIUM 2 GM in SODIUM CHL 0.9% 100ML MINI-BAG 100 ML IVPB SCH (08:29)
[2019-05-02] MEDS: METHYLPHENIDATE HCL 5 MG PO SCH ×2 (08:29→11:29)
[2019-05-02] MEDS: TETRAHYDROZOLINE HCL OPHTH SOL 1 DROP BOTH_EYES SCH (08:29)
[2019-05-02] MEDS: POLYETHYLENE GLYCOL 3350 17 GM PCKT PO SCH (08:49)
[2019-05-02] MEDS: NUTRITIONAL SUPPLEMENTS PO SCH (08:49)
[2019-05-02 11:33] VITALS: BP 172/86; O2SAT 97
[2019-05-02] MEDS ORDERED: SODIUM CHLORIDE 0.9% 250ML 250 ML ONE (11:38)
[2019-05-02] MEDS ORDERED: VANCOMYCIN HCL INJ 1,000 MG VIAL IVPB ONE (11:38)
[2019-05-02] MEDS ORDERED: VANCOMYCIN HCL INJ 500 MG VIAL ONE (11:38)
[2019-05-02] MEDS: VANCOMYCIN HCL INJ 1,000 MG, VANCOMYCIN HCL INJ 250 MG in SODIUM CHLORIDE 0.9% 250ML 25... IVPB SCH (11:42)
--- NOTE | 2019-05-02 21:44 | DS ---
SUPERVISING PHYSICIAN: Denis Vu M.D. ADMISSION DIAGNOSIS: 1. Sepsis with a temperature of 103 and tachycardic, and acute mental status change from baseline with infectious source being identified as a urinary tract infection with cultures pending. 2. Urinary tract infection contributing to #1 with cultures pending. 3. Status post traumatic fall with open book pelvis fracture with internal fixation and exploratory laparotomy with no other acute findings with noted drainage, questionable infection of the laparotomy site around the umbilicus awaiting surgical consultation and cultures of the drainage. 4. Hypertension. 5. Diabetes mellitus type 2. 6. Leukocytosis secondary to #1 with a left shift. 7. History of open book pelvic fracture with limited weightbearing toe touch only. 8. Questionable ileus with some nausea and vomiting with a past history of exploratory laparotomy awaiting surgical consultation. 9. History of previous subarachnoid bleed and cerebrovascular accident due to multiple trauma currently in rehabilitation. DISCHARGE DIAGNOSIS: 1. Bacteremia secondary to urinary tract infection caused by Klebsiella oxytoca also with a history of MRSA to umbilicus laparotomy with the patient showing good response to Meropenem and vancomycin requiring an additional 14 days of Ceftriaxone based off sensitivity reports and then an additional weeks of of oral doxycycline and cefpodoxime for total of 6 weeks of antibiotic coverage. 2. Urinary tract infection secondary to Klebsiella pneumoniae. 3. Status post traumatic fall with open book pelvis fracture with internal fixation of pubic symphysis and superior pubic rami with screw and plate fixation, and exploratory laparotomy with no other acute findings and noted drainage, questionable infection of the laparotomy site around the umbilicus awaiting surgical results. 4. Hypertension. 5. Diabetes mellitus, type 2. 6. Previous open book pelvic fracture with stabilization open reduction and internal fixation of the left sacroiliac joint with the patient having limited weightbearing capacity until cleared by orthopedic at [facility] this coming Sunday requiring ongoing physical therapy for Swing Bed admission. 7. 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 8. 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 REASON FOR HOSPITALIZATION: Mr. Del Cid is a 69 year-old male patient who has a long history over the last month that starts with him having a significant fall off of a ladder on March 10 resulting in an open book pelvic fracture. He was sent to [place] and then flown to [facility] where they did an exploratory laparotomy with no findings and internal fixation of a pelvic fracture. He was in ICU for 2 weeks and had 2 separate brain bleeds as well as cerebellar strokes. He has had some issues with double vision and some paresthesias on both upper extremities which has contributed to some trauma to the C6 and C7 area as well as he supposedly was diagnosed with spinal shock. After leaving [facility] he was sent to [facility] on the 24 of March and stayed there until the 18 of April, and then went to [facility] in [place] for a week and then last night was sent to the E. R. via 911 due to the fact that he was having some chills and shivers, and his felt that he was confused. On presentation to the E. R., it was noted by the that the patient was back to his normal mentation. The patient was denying and chest pains, shortness of breath, meningeal signs, headaches, abdominal pains or dysuria. The patient was noting that he "felt normal." Except for the fever, he had no other further complaints. On workup, it was found that he had a mild leukocytosis and a left shift with a white count of 12,100, hemoglobin 12, hematocrit 35.9. Chemistries were all within normal limits with creatinine 0.86. Liver functions were all normal. Lactic acid was 1.8. Calcium was normal at 9.4, however his urine showed a moderate amount of blood and leukocyte esterase with microscopic revealing 30 to 40 WBCs with 4+ bacteria and no epithelial cells. It was also noted on exam that the patient had some drainage coming from his umbilical area from where they had done the exploratory laparotomy. His noted that they had been treating at the rehab with wound VAC and it had been draining, and that she thought they had left 1 stitch in there. The patient vital signs did show that he was febrile on admission with a temperature of 103.8 with a heart rate at 115, blood [id number] and was showing 20 respirations with 93% on room air saturation. He was given Tylenol which did result in the normalization of his temperature. 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 There was also question of whether or not he has an abdominal infection or abscess in the region of the laparotomy incision, so a CT of the abdomen was completed with contrast and there was note per radiology interpretation normal CT exam of the pelvis and abdomen with just postsurgical changes noted within the bony pelvis. He then had a CT of the head given that he has had a previous subarachnoid bleed, the 2 cerebellar strokes and the confusion initially on presentation, and noted by Radiology there was decreased attenuation of the left inferior cerebellum suggestive of encephalomalacia or ischemic stroke. The patient had 1 episode of projective vomiting and according to his he had had an issue while he was in rehab with questionable ileus. At this point the E. R. physician felt like the patient could not be completely ruled out and placed an NG tube. The patient is now going to be admitted for continuation of treatment with concerns for sepsis secondary to urinary tract infection and to further examine the possibility of an intraabdominal infectious process as well as the need for surgical oronasal suction. LABORATORY STUDIES: Initial white count on admission was 12,100, prior to discharge normalized to 5,700. Hemoglobin and hematocrit were showing to be stable, on discharge was 11.5 and 34.2 respectively with platelet count 264,000. Differential did show a left shift with slight increase in bands. Initial electrolytes on admission were showing to be within normal limits. Lactic acid was 1.8, calcium 9.4. Liver functions were all within normal limits. Blood sugars range between 75 and 151. Urinalysis showed moderate amount of blood, small leukocyte esterase with microscopic revealing 4+ bacteria, 0 epithelials and 30 to 40 WBCs, 3 to 5 RBCs. MICROBIOLOGY: He had 1 set of blood cultures that grew out Klebsiella pneumoniae. The second set of blood cultures drawn after initiation of antibiotics were showing to be negative with no growth at 5 days. He had Influenza A and B by PCR which was negative. He had a catheterized urine culture that grew out Klebsiella oxytoca. Please see those reports for details. He had a wound culture that grew out MRSA. RADIOLOGY: He had an abdominal/pelvis CT on admission and per radiology interpretation showed normal CT exam of the pelvis and abdomen without contrast, post surgical changes in the bony pelvis. He had a chest x-ray initially on admission and single view chest showed no acute findings. He had followup chest x-rays and also had a CT of the head without contrast, and per radiology interpretation showed decreased attenuation of the left inferior cerebellum suggestive of encephalomalacic or ischemic stroke. The patient does have a history of previous ischemic strokes as well as subarachnoid bleeds, but no acute findings on that CT. Please see the CT report for details. Last x-ray on the morning of the 4th on discharge and admission to Swing Bed, his chest x-ray, two view chest showed no acute cardiopulmonary abnormalities. EKG in the E.R. on admission initially showed he had sinus tachycardia with a rate of 131 with a right incomplete bundle branch block and nonspecific ST wave changes but negative for STEMI. MEDICAL CONSULTATION: Orthopedic Service, Dr. Camarena. Please see his report for details. HOSPITAL COURSE: Mr. Del Cid was admitted on secondary to fever and acute mental status change. He was started on Meropenem and vancomycin given his past history of multiple hospitalizations and hospitalizations at [facility]. He did continue to run a fever for the first 24 hours and ended up having a set of blood culture showing positive for Klebsiella pneumoniae and then he had a bladder infection that grew out Klebsiella oxytoca. He did show good response to antibiotic therapy and was able to actually participate with some physical therapy, although he is nonweightbearing at this point. His mental status returned to normal levels per family members. He was having no further complaints and was responding well to treatment, however given the multiple organisms, after discussion with Dr. Curiel, Infectious Disease, the decision was that a PICC line should be placed and he should be continued on antibiotic therapy with Rocephin for at least an additional 2 weeks along with vancomycin after which he could be transitioned to doxycycline and cefpodoxime as noted above. He does have an appointment this coming Sunday with S. Given his clinical improvement he will be discharged to Swing Bed to continue with antibiotic therapy and ongoing physical therapy and rehabilitation efforts. He was seen by Dr. Ramirez in regards to the umbilicus drainage and there is a rather large suture not still in place which Dr. Ramirez will remove this next week. PLAN: Mr. Del Cid is going to be discharged from Acute Care to continue with antibiotic therapy and rehabilitation efforts through Swing Bed program at [facility]. DISPOSITION: The patient was discharged to Swing Bed at [facility]. Condition on discharge was stable and improved. #[id number] [id number]
== END 2019-05-02 13:40 | disposition swing bed (61) | DRG 872 ==
LOC: ER 17:48 → OBSVTOIN 23:34 → MS 23:34
PROVIDERS: ADMIT Nurse Practitioner Family; ATTEND Nurse Practitioner Family
PROC: BW211ZZ Computerized Tomography (CT Scan) of Abdomen and Pelvis using Low Osmolar Contrast (ICD-10-PCS; 2019-04-25)
PROC: 02HV33Z Insertion of Infusion Device into Superior Vena Cava, Percutaneous Approach (ICD-10-PCS; principal; 2019-05-01)
DX: A41.89 Other specified sepsis (principal); N12 Tubulo-interstitial nephritis, not specified as acute or chronic; K56.7 Ileus, unspecified; T81.49XA Infection following a procedure, other surgical site, initial encounter; I10 Essential (primary) hypertension; E11.9 Type 2 diabetes mellitus without complications; B96.89 Other specified bacterial agents as the cause of diseases classified elsewhere; B95.62 Methicillin resistant Staphylococcus aureus infection as the cause of diseases classified elsewhere; S32.512D Fracture of superior rim of left pubis, subsequent encounter for fracture with routine healing; S32.511D Fracture of superior rim of right pubis, subsequent encounter for fracture with routine healing; H50.9 Unspecified strabismus; K21.9 Gastro-esophageal reflux disease without esophagitis; S06.6X9S Traumatic subarachnoid hemorrhage with loss of consciousness of unspecified duration, sequela; F17.290 Nicotine dependence, other tobacco product, uncomplicated; Z90.49 Acquired absence of other specified parts of digestive tract; Z98.890 Other specified postprocedural states; Z79.1 Long term (current) use of non-steroidal anti-inflammatories (NSAID); Z79.891 Long term (current) use of opiate analgesic; Z79.4 Long term (current) use of insulin; Z79.899 Other long term (current) drug therapy; Z79.82 Long term (current) use of aspirin

== ENCOUNTER 2019-05-02 13:45 | Inpatient (IN) | payer MEDICARE, OTHER ==
--- NOTE | 2019-05-02 13:46 | HP ---
SUPERVISING PHYSICIAN: Denis Vu M.D. REASON FOR SWING BED ADMISSION: Antibiotic therapy with parenteral antibiotics and continued physical therapy. HISTORY OF PRESENT ILLNESS: Mr. Del iCd is a 69 year-old male patient who has a long history over the last month that starts with him having a significant fall off of a ladder on March 10 resulting in an open book pelvic fracture. He was sent to [place] and then flown to [facility] where they did an exploratory laparotomy with no findings and internal fixation of a pelvic fracture. He was in ICU for 2 weeks and had 2 separate brain bleeds as well as cerebellar strokes. He has had some issues with double vision and some paresthesias on both upper extremities which has contributed to some trauma to the C6 and C7 area as well as he supposedly was diagnosed with spinal shock. After leaving [facility] he was sent to [facility] on the 24 of March and stayed there until the 18 of April, and then went to [facility] in [place] for a week and then last night was sent to the E. R. via 911 due to the fact that he was having some chills and shivers, and his felt that he was confused. On presentation to the E. R., it was noted by the that the patient was back to his normal mentation. The patient was denying and chest pains, shortness of breath, meningeal signs, headaches, abdominal pains or dysuria. The patient was noting that he "felt normal." Except for the fever, he had no other further complaints. On workup, it was found that he had a mild leukocytosis and a left shift with a white count of 12,100, hemoglobin 12, hematocrit 35.9. Chemistries were all within normal limits with creatinine 0.86. Liver functions were all normal. Lactic acid was 1.8. Calcium was normal at 9.4, however his urine showed a moderate amount of blood and leukocyte esterase with microscopic revealing 30 to 40 WBCs with 4+ bacteria and no epithelial cells. It was also noted on exam that the patient had some drainage coming from his umbilical area from where they had done the exploratory laparotomy. His noted that they had been treating at the rehab with wound VAC and it had been draining, and that she thought they had left 1 stitch in there. The patient vital signs did show that he was febrile on admission with a temperature of 103.8 with a heart rate at 115, blood /80 and was showing 20 respirations with 93% on room air saturation. He was given Tylenol which did result in the normalization of his temperature. He was started on antibiotics to include Zosyn and vancomycin given his risk factors for multidrug resistant organisms after staying in multiple hospitals and buttermaker helper care facilities for treatment of underlying urinary tract infection. There was also question of whether or not he has an abdominal infection or abscess in the region of the laparotomy incision, so a CT of the abdomen was completed with contrast and there was note per radiology interpretation normal CT exam of the pelvis and abdomen with just postsurgical changes noted within the bony pelvis. He then had a CT of the head given that he has had a previous subarachnoid bleed, the 2 cerebellar strokes and the confusion initially on presentation, and noted by Radiology there was decreased attenuation of the left inferior cerebellum suggestive of encephalomalacia or ischemic stroke. The patient had 1 episode of projective vomiting and according to his he had had an issue while he was in rehab with questionable ileus. At this point the E. R. physician felt like the patient could not be completely ruled out and placed an NG tube. The patient did well through his Acute Care stay. Mr. Del Cid was admitted to Acute Care for initiation of antibiotics for the urinary tract infection and again noted on his laboratory studies while on Acute Care he was found to have bacteremia secondary to Klebsiella pneumoniae and urinary tract infection due to Klebsiella oxytoca, and MRSA infection of the laparotomy incision. He was placed on antibiotics with Meropenem and then transitioned based off sensitivity reports to Ceftriaxone and continued on vancomycin and he clinically improved. He had a PICC line placed and given the fact that he needs an additional 14 days based off Infectious Disease consultation with Dr. Curiel, he will be admitted to Swing Bed program. He is going to see his surgeons at [facility] this coming Sunday and as soon as he is released and a plan is in place Dr. Camarena will continue to follow the patient for physical therapy and rehabilitation efforts. The patient is going to be admitted to Swing Bed. He is in stable condition at time of Swing Bed admission. PAST MEDICAL HISTORY: 1. Hypertension. 2. Type 2 diabetes mellitus. 3. 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 PAST SURGICAL HISTORY: 1. Cholecystectomy. 2. Cataract removals. 3. Internal fixation of pubic symphysis with plate in February with screw fixation on the left sacroiliac joint in February 2019. 4. Exploratory laparotomy status post same level fall with pelvic fracture with no acute findings. HOME MEDICATIONS: 1. Zofran 1 to 2 tabs every 4 hours as needed. 2. Flomax 0.4 mg daily. 3. Sucralfate 1 gram a.c. and h.s. 4. Scopolamine 1.5 mg every third day. 5. Promod 30 mL b.i.d. 6. MiraLAX 17 grams daily. 7. Celebrex 100 mg b.i.d. 8. Sliding scale insulin. 9. [place] 10/325 one every 4 hours as needed. 10. Ritalin 5 mg b.i.d. 11. Melatonin 6 mg at bedtime p.r.n. 12. Levemir 24 units subcue at bedtime. 13. Gabapentin 600 mg t.i.d. 14. [place]ine AC both eyes b.i.d. 15. Colace 100 mg b.i.d. 16. Zostrix 60 grams topically t.i.d. as needed. 17. Aspirin low dose 81 mg. 18. Famotidine 20 mg daily. 19. Venlafaxine extended release 150 mg daily. ALLERGIES: NO KNOWN DRUG ALLERGIES. FAMILY HISTORY: Father at age 64 due to myocardial infarction. He has 1 brother who has arrhythmia, atrial fibrillation and kidney problems. 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 He does not smoke but has used smokeless tobacco. Does not drink alcohol or illicit drugs. He is . Lives in [place]. REVIEW OF SYSTEMS: CONSTITUTIONAL: Denies any fevers, chills, general malaise or body aches. HEENT: Negative for any headaches. Does have double vision which is chronic from previous accident. Denies any ear aches, sore throat, nasal congestion. RESPIRATORY: Denies any coughing, wheezing or shortness of breath. CARDIOVASCULAR: Denies any chest pains, palpitations or syncopal episodes. GASTROINTESTINAL: Denies any nausea, vomiting, diarrhea, abdominal pains or constipation. GENITOURINARY: Denies any dysuria, hematuria or polyuria. NEUROLOGIC: Denies any ataxia or seizures. Cranial nerves II-XII as noted above, were normal except for the diplopia which is due to loss of convergence bilaterally, but no motor deficits are reported. SKIN: No reported lesions, rashes or unexplained changes. HEMATOLOGIC: Denies any easy bleeding or unexplained bruising. PHYSICAL EXAMINATION: VITAL SIGNS: Temperature 98, pulse 74, blood pressure 174/75, respirations 16, satting 98% on room air. Admission weight 93.9 kg. GENERAL: The patient is resting comfortably. Appeared to be in no acute distress. He is well hydrated and well nourished. He is alert. HEENT: Tympanic membranes are clear bilaterally. Oropharynx is pink and moist without any lesions. Eyes were notably strabismus but utilizing an eye patch on the left eye. NECK: Non-tender, supple with full range of motion. No jugular venous distention. CHEST: Lungs were clear to auscultation bilaterally without any rhonchi, wheezing or rales. CARDIOVASCULAR: Regular rate and rhythm without appreciable murmurs, gallops, or rubs. ABDOMEN: Soft, non-tender. Positive bowel sounds. There continues to be an area of the umbilicus with some serous fibrous drainage with no obvious other signs of infection. Abdomen was soft, non-tender. Positive bowel sounds. EXTREMITIES: Without any clubbing, cyanosis or edema. NEUROLOGIC: Cranial nerves II-XII are grossly intact except as noted for the strabismus. There was no other motor or sensory deficit. He was alert and oriented times three. SKIN: Warm, pink and dry. LABORATORY: CBC and CMP pending. RADIOLOGY: Chest x-ray pending. Abdominal x-ray pending. ASSESSMENT: 1. Bacteremia secondary to urinary tract infection caused by Klebsiella oxytoca also with a history of MRSA to umbilicus laparotomy with the patient showing good response to Meropenem and vancomycin requiring an additional 14 days of Ceftriaxone based off sensitivity reports and then an additional 4 weeks of oral therapy doxycycline and cefpodoxime for total of 6 weeks of antibiotic coverage . 2. Urinary tract infection secondary to Klebsiella pneumoniae. 3. Status post traumatic fall with open book pelvis fracture with internal fixation of pubic symphysis and superior pubic rami with screw and plate fixation, and exploratory laparotomy with no other acute findings and noted drainage, questionable infection of the laparotomy site around the umbilicus awaiting surgical results. 4. Hypertension. 5. Diabetes mellitus, type 2. 6. Previous open book pelvic fracture with stabilization open reduction and internal fixation of the left sacroiliac joint with the patient having limited weightbearing capacity until cleared by orthopedic at [facility] this coming Sunday requiring ongoing physical therapy for Swing Bed admission. 7. 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 8. 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 PLAN: Mr. Felipe Del Cid is going to be discharged from Acute Care and admitted to Swing Bed for ongoing physical therapy and parenteral antibiotics. He does have a PICC line in place. He will be on DVT prophylaxis per protocol. He will be on insulin sliding scale per protocol. Will resume his home medications once those are updated and verified. He will be resumed on antibiotics for an additional 13 days on Rocephin and vancomycin after which time he will be transitioned to doxycycline and cefpodoxime for an additional 4 weeks. He will have physical therapy evaluation. He has an appointment to see [facility] this coming week on Sunday. He will need a pass for that. He is on an ADA 1800 calorie diet. He will also have a nutritional consultation. Will anticipate his length of stay to be at least 3 to 7 days. Until we can transition to outpatient management will continue to monitor and treat as needed. [facility][id number] [facility]
[2019-05-02] MEDS ORDERED: ACETAMINOPHEN 500 MG TAB PO PRN (15:10)
[2019-05-02] MEDS ORDERED: GLUCAGON INJ 1 MG VIAL SUBCU PRN (15:10)
[2019-05-02] MEDS ORDERED: MAGNESIUM HYDROXIDE 30 ML UD PO PRN (15:10)
[2019-05-02] MEDS ORDERED: SODIUM PHOS/BIPHOS ENEMA ADULT 133 ML BTTL PR PRN (15:10)
[2019-05-02] MEDS ORDERED: DEXTROSE 50% 25 GM/50 ML SYG IV PRN (15:10)
[2019-05-02] MEDS ORDERED: VANCOMYCIN PER PHARMACY INJ SCH (15:30)
[2019-05-02] MEDS: INSULIN LISPRO 100 UNITS/ML PEN SUBCU SCH ×2 (16:34→21:01)
[2019-05-02] MEDS ORDERED: CAPSAICIN 0.025% CREAM 60 GM TUBE TOP PRN (18:35)
[2019-05-02] MEDS: HYDROcodone 10MG/APAP 325MG 1 EA TAB PO PRN (18:44)
[2019-05-02] MEDS ORDERED: LACTOBACILLUS 1 TAB ONE (19:11)
[2019-05-02] MEDS ORDERED: GABAPENTIN 300 MG CAP ONE (19:11)
[2019-05-02] MEDS ORDERED: METHYLPHENIDATE HCL 5 MG PO SCH (21:00)
[2019-05-02] MEDS ORDERED: NON-FORMULARY MEDICATION 1 EA MIS (Gabapentin [Gabapentin] 600 MG) PO SCH (21:00)
[2019-05-02] MEDS ORDERED: LACTOBACILLUS PO SCH (21:00)
[2019-05-02] MEDS: DOCUSATE SODIUM 100 MG CAP PO SCH (21:01)
[2019-05-02] MEDS: FAMOTIDINE 20 MG TAB PO SCH (21:03)
[2019-05-02] MEDS: SUCRALFATE 1 GM TAB PO SCH (21:03)
[2019-05-02] MEDS: CELECOXIB 100 MG CAP PO SCH (21:03)
[2019-05-02] MEDS: NUTRITIONAL SUPPLEMENTS PO SCH (21:05)
[2019-05-02] MEDS: INSULIN DETEMIR 100 UNITS/ML PEN SUBCU SCH (21:05)
[2019-05-02] MEDS ORDERED: VANCOMYCIN HCL INJ 500 MG VIAL ONE (22:40)
[2019-05-02] MEDS ORDERED: SODIUM CHLORIDE 0.9% 250ML 250 ML ONE (22:40)
[2019-05-02] MEDS ORDERED: VANCOMYCIN HCL INJ 1,000 MG VIAL IVPB ONE (22:40)
[2019-05-02] MEDS: VANCOMYCIN HCL INJ 1,000 MG, VANCOMYCIN HCL INJ 250 MG in SODIUM CHLORIDE 0.9% 250ML 25... IVPB SCH (22:42)
[2019-05-03] MEDS: SUCRALFATE 1 GM TAB PO SCH ×4 (06:32→21:06)
[2019-05-03] MEDS: INSULIN LISPRO 100 UNITS/ML PEN SUBCU SCH ×4 (07:37→21:25)
[2019-05-03] MEDS ORDERED: DOCUSATE SODIUM 100 MG CAP PO SCH (09:00)
[2019-05-03] MEDS ORDERED: SODIUM CHL 0.9% 100ML MINI-BAG 100 ML IVPB ONE ×2 (09:44→10:01)
[2019-05-03] MEDS: POLYETHYLENE GLYCOL 3350 17 GM PCKT PO SCH (09:52)
[2019-05-03] MEDS: CELECOXIB 100 MG CAP PO SCH ×2 (09:54→21:05)
[2019-05-03] MEDS: FAMOTIDINE 20 MG TAB PO SCH ×2 (09:54→21:06)
[2019-05-03] MEDS: TAMSULOSIN 0.4 MG CAP PO SCH (09:55)
[2019-05-03] MEDS: GABAPENTIN 300 MG CAP PO SCH ×3 (09:55→21:06)
[2019-05-03] MEDS: VENLAFAXINE XR 75 MG CAP PO SCH (09:55)
[2019-05-03] MEDS: FERROUS SULFATE 325 MG TAB PO SCH (09:55)
[2019-05-03] MEDS: ASPIRIN (ENTERIC COATED) 81 MG TAB PO SCH (09:55)
[2019-05-03] MEDS: NUTRITIONAL SUPPLEMENTS PO SCH ×2 (09:56→21:07)
[2019-05-03] MEDS: METHYLPHENIDATE HCL 5 MG PO SCH ×2 (09:56→12:10)
[2019-05-03] MEDS: LACTOBACILLUS 1 TAB PO SCH ×2 (09:56→21:06)
[2019-05-03] MEDS: SCOPOLAMINE PATCH 1.5MG 1 EA TD SCH (09:56)
[2019-05-03] MEDS: TETRAHYDROZOLINE HCL OPHTH SOL 1 DROP BOTH_EYES SCH ×2 (09:57→21:07)
[2019-05-03] MEDS: cefTRIAXone SODIUM 2 GM in SODIUM CHL 0.9% 100ML MINI-BAG 100 ML IVPB SCH (10:03)
[2019-05-03] MEDS ORDERED: VANCOMYCIN HCL INJ 500 MG VIAL ONE ×2 (11:54→19:03)
[2019-05-03] MEDS ORDERED: VANCOMYCIN HCL INJ 1,000 MG VIAL IVPB ONE ×2 (11:54→19:04)
[2019-05-03] MEDS ORDERED: SODIUM CHLORIDE 0.9% 250ML 250 ML ONE ×2 (11:54→19:03)
[2019-05-03] MEDS: VANCOMYCIN HCL INJ 1,000 MG, VANCOMYCIN HCL INJ 250 MG in SODIUM CHLORIDE 0.9% 250ML 25... IVPB SCH ×2 (12:01→22:45)
[2019-05-03] MEDS: DOCUSATE SODIUM 100 MG CAP PO SCH ×2 (12:16→21:06)
[2019-05-03] MEDS ORDERED: POTASSIUM CHLORIDE 20 MEQ TAB PO ONE (12:45)
[2019-05-03] MEDS: HYDROcodone 10MG/APAP 325MG 1 EA TAB PO PRN (19:32)
[2019-05-03] MEDS: INSULIN DETEMIR 100 UNITS/ML PEN SUBCU SCH (21:26)
[2019-05-04] MEDS: SUCRALFATE 1 GM TAB PO SCH ×4 (06:36→20:57)
[2019-05-04] MEDS: INSULIN LISPRO 100 UNITS/ML PEN SUBCU SCH ×4 (07:39→20:59)
[2019-05-04] MEDS: METHYLPHENIDATE HCL 5 MG PO SCH ×2 (07:39→12:08)
[2019-05-04] MEDS: FERROUS SULFATE 325 MG TAB PO SCH (07:39)
[2019-05-04] MEDS ORDERED: SODIUM CHL 0.9% 100ML MINI-BAG 100 ML IVPB ONE (09:16)
[2019-05-04] MEDS: CELECOXIB 100 MG CAP PO SCH ×2 (09:22→20:58)
[2019-05-04] MEDS: GABAPENTIN 300 MG CAP PO SCH ×3 (09:22→21:00)
[2019-05-04] MEDS: cefTRIAXone SODIUM 2 GM in SODIUM CHL 0.9% 100ML MINI-BAG 100 ML IVPB SCH (09:22)
[2019-05-04] MEDS: DOCUSATE SODIUM 100 MG CAP PO SCH ×2 (09:22→20:58)
[2019-05-04] MEDS: TAMSULOSIN 0.4 MG CAP PO SCH (09:23)
[2019-05-04] MEDS: ASPIRIN (ENTERIC COATED) 81 MG TAB PO SCH (09:23)
[2019-05-04] MEDS: TETRAHYDROZOLINE HCL OPHTH SOL 1 DROP BOTH_EYES SCH ×2 (09:23→21:00)
[2019-05-04] MEDS: VENLAFAXINE XR 75 MG CAP PO SCH (09:23)
[2019-05-04] MEDS: FAMOTIDINE 20 MG TAB PO SCH ×2 (09:23→21:00)
[2019-05-04] MEDS: LACTOBACILLUS 1 TAB PO SCH ×2 (09:40→20:58)
[2019-05-04] MEDS: NUTRITIONAL SUPPLEMENTS PO SCH ×2 (09:40→21:00)
[2019-05-04] MEDS: POLYETHYLENE GLYCOL 3350 17 GM PCKT PO SCH (10:11)
[2019-05-04] MEDS ORDERED: VANCOMYCIN HCL INJ 500 MG VIAL ONE ×3 (11:59→23:15)
[2019-05-04] MEDS ORDERED: SODIUM CHLORIDE 0.9% 250ML 250 ML ONE ×3 (12:00→23:15)
[2019-05-04] MEDS ORDERED: VANCOMYCIN HCL INJ 1,000 MG VIAL IVPB ONE ×3 (12:00→23:15)
[2019-05-04] MEDS: VANCOMYCIN HCL INJ 1,000 MG, VANCOMYCIN HCL INJ 250 MG in SODIUM CHLORIDE 0.9% 250ML 25... IVPB SCH ×2 (12:07→23:25)
[2019-05-04] MEDS ORDERED: ALPRAZolam 0.25 MG TAB PO ONE (19:23)
[2019-05-04] MEDS: INSULIN DETEMIR 100 UNITS/ML PEN SUBCU SCH (20:59)
[2019-05-05] MEDS: METHYLPHENIDATE HCL 5 MG PO SCH ×2 (06:02→11:21)
[2019-05-05] MEDS: SUCRALFATE 1 GM TAB PO SCH ×4 (06:02→19:55)
[2019-05-05] MEDS ORDERED: SODIUM CHL 0.9% 100ML MINI-BAG 100 ML IVPB ONE (07:25)
[2019-05-05] MEDS: GABAPENTIN 300 MG CAP PO SCH ×3 (08:08→19:56)
[2019-05-05] MEDS: VENLAFAXINE XR 75 MG CAP PO SCH (08:08)
[2019-05-05] MEDS: DOCUSATE SODIUM 100 MG CAP PO SCH ×2 (08:09→19:55)
[2019-05-05] MEDS: FAMOTIDINE 20 MG TAB PO SCH ×2 (08:09→19:56)
[2019-05-05] MEDS: TAMSULOSIN 0.4 MG CAP PO SCH (08:09)
[2019-05-05] MEDS: CELECOXIB 100 MG CAP PO SCH ×2 (08:09→19:55)
[2019-05-05] MEDS: ASPIRIN (ENTERIC COATED) 81 MG TAB PO SCH (08:09)
[2019-05-05] MEDS: FERROUS SULFATE 325 MG TAB PO SCH (08:09)
[2019-05-05] MEDS: ENOXAPARIN SODIUM 40 MG/0.4 ML SYG SUBCU SCH (08:09)
[2019-05-05] MEDS: TETRAHYDROZOLINE HCL OPHTH SOL 1 DROP BOTH_EYES SCH ×2 (08:11→20:57)
[2019-05-05] MEDS: NUTRITIONAL SUPPLEMENTS PO SCH ×2 (08:11→19:56)
[2019-05-05] MEDS: POLYETHYLENE GLYCOL 3350 17 GM PCKT PO SCH (08:24)
[2019-05-05] MEDS: INSULIN LISPRO 100 UNITS/ML PEN SUBCU SCH ×4 (08:24→20:57)
[2019-05-05] MEDS: cefTRIAXone SODIUM 2 GM in SODIUM CHL 0.9% 100ML MINI-BAG 100 ML IVPB SCH (08:34)
[2019-05-05] MEDS: LACTOBACILLUS 1 TAB PO SCH ×2 (08:44→19:55)
[2019-05-05] MEDS ORDERED: VANCOMYCIN HCL INJ 500 MG VIAL ONE ×2 (11:06→21:11)
[2019-05-05] MEDS ORDERED: VANCOMYCIN HCL INJ 1,000 MG VIAL IVPB ONE ×2 (11:07→21:11)
[2019-05-05] MEDS ORDERED: SODIUM CHLORIDE 0.9% 250ML 250 ML ONE ×2 (11:07→21:11)
[2019-05-05] MEDS: VANCOMYCIN HCL INJ 1,000 MG, VANCOMYCIN HCL INJ 250 MG in SODIUM CHLORIDE 0.9% 250ML 25... IVPB SCH ×2 (11:21→21:30)
[2019-05-05] MEDS: MELATONIN 3 MG TAB PO PRN (20:31)
[2019-05-05] MEDS: INSULIN DETEMIR 100 UNITS/ML PEN SUBCU SCH (21:05)
[2019-05-06] MEDS: METHYLPHENIDATE HCL 5 MG PO SCH ×2 (06:00→12:34)
[2019-05-06] MEDS: SUCRALFATE 1 GM TAB PO SCH ×4 (06:00→20:41)
[2019-05-06] MEDS ORDERED: SODIUM CHL 0.9% 100ML MINI-BAG 100 ML IVPB ONE (06:55)
[2019-05-06] MEDS: INSULIN LISPRO 100 UNITS/ML PEN SUBCU SCH ×4 (07:01→22:12)
[2019-05-06] MEDS: VENLAFAXINE XR 75 MG CAP PO SCH (08:00)
[2019-05-06] MEDS: GABAPENTIN 300 MG CAP PO SCH ×3 (08:00→20:37)
[2019-05-06] MEDS: LACTOBACILLUS 1 TAB PO SCH ×2 (08:00→20:41)
[2019-05-06] MEDS: CELECOXIB 100 MG CAP PO SCH ×2 (08:01→20:37)
[2019-05-06] MEDS: FAMOTIDINE 20 MG TAB PO SCH ×2 (08:01→20:37)
[2019-05-06] MEDS: TAMSULOSIN 0.4 MG CAP PO SCH (08:01)
[2019-05-06] MEDS: FERROUS SULFATE 325 MG TAB PO SCH (08:01)
[2019-05-06] MEDS: ENOXAPARIN SODIUM 40 MG/0.4 ML SYG SUBCU SCH (08:02)
[2019-05-06] MEDS: SCOPOLAMINE PATCH 1.5MG 1 EA TD SCH (08:02)
[2019-05-06] MEDS: ASPIRIN (ENTERIC COATED) 81 MG TAB PO SCH (08:02)
[2019-05-06] MEDS: POLYETHYLENE GLYCOL 3350 17 GM PCKT PO SCH (08:10)
[2019-05-06] MEDS: DOCUSATE SODIUM 100 MG CAP PO SCH ×2 (08:11→20:37)
[2019-05-06] MEDS: cefTRIAXone SODIUM 2 GM in SODIUM CHL 0.9% 100ML MINI-BAG 100 ML IVPB SCH (08:30)
[2019-05-06] MEDS: NUTRITIONAL SUPPLEMENTS PO SCH ×2 (08:31→20:52)
[2019-05-06] MEDS ORDERED: VANCOMYCIN HCL INJ 1,000 MG VIAL IVPB ONE ×2 (08:35→20:18)
[2019-05-06] MEDS ORDERED: SODIUM CHLORIDE 0.9% 250ML 250 ML ONE ×2 (08:35→20:18)
[2019-05-06] MEDS ORDERED: VANCOMYCIN HCL INJ 500 MG VIAL ONE ×2 (08:35→20:17)
[2019-05-06] MEDS: TETRAHYDROZOLINE HCL OPHTH SOL 1 DROP BOTH_EYES SCH ×2 (08:41→20:52)
[2019-05-06] MEDS: HYDROcodone 10MG/APAP 325MG 1 EA TAB PO PRN (09:16)
[2019-05-06] MEDS: VANCOMYCIN HCL INJ 1,000 MG, VANCOMYCIN HCL INJ 250 MG in SODIUM CHLORIDE 0.9% 250ML 25... IVPB SCH ×2 (10:07→22:13)
[2019-05-06] MEDS ORDERED: cloNIDine HCL 0.1 MG TAB PO ONE (20:34)
[2019-05-06] MEDS: INSULIN DETEMIR 100 UNITS/ML PEN SUBCU SCH (22:12)
[2019-05-07] MEDS: cloNIDine HCL 0.1 MG TAB PO PRN (04:13)
[2019-05-07] MEDS: METHYLPHENIDATE HCL 5 MG PO SCH ×2 (06:03→11:30)
[2019-05-07] MEDS: SUCRALFATE 1 GM TAB PO SCH ×4 (06:03→20:49)
[2019-05-07] MEDS: INSULIN LISPRO 100 UNITS/ML PEN SUBCU SCH ×4 (07:19→21:12)
[2019-05-07] MEDS: FERROUS SULFATE 325 MG TAB PO SCH (07:34)
[2019-05-07] MEDS ORDERED: SODIUM CHL 0.9% 100ML MINI-BAG 100 ML IVPB ONE (08:13)
[2019-05-07] MEDS: TETRAHYDROZOLINE HCL OPHTH SOL 1 DROP BOTH_EYES SCH ×2 (09:17→20:50)
[2019-05-07] MEDS: cefTRIAXone SODIUM 2 GM in SODIUM CHL 0.9% 100ML MINI-BAG 100 ML IVPB SCH (09:17)
[2019-05-07] MEDS: NUTRITIONAL SUPPLEMENTS PO SCH ×2 (09:18→20:50)
[2019-05-07] MEDS: FAMOTIDINE 20 MG TAB PO SCH ×2 (09:19→20:49)
[2019-05-07] MEDS: ASPIRIN (ENTERIC COATED) 81 MG TAB PO SCH (09:19)
[2019-05-07] MEDS: TAMSULOSIN 0.4 MG CAP PO SCH (09:19)
[2019-05-07] MEDS: POLYETHYLENE GLYCOL 3350 17 GM PCKT PO SCH (09:19)
[2019-05-07] MEDS: CELECOXIB 100 MG CAP PO SCH ×2 (09:20→20:49)
[2019-05-07] MEDS: ENOXAPARIN SODIUM 40 MG/0.4 ML SYG SUBCU SCH (09:20)
[2019-05-07] MEDS: GABAPENTIN 300 MG CAP PO SCH ×3 (09:20→20:49)
[2019-05-07] MEDS: DOCUSATE SODIUM 100 MG CAP PO SCH ×2 (09:20→20:49)
[2019-05-07] MEDS: LACTOBACILLUS 1 TAB PO SCH ×2 (09:28→20:49)
[2019-05-07] MEDS: VENLAFAXINE XR 75 MG CAP PO SCH (09:30)
[2019-05-07] MEDS: amLODIPine BESYLATE 5 MG TAB PO SCH (09:54)
[2019-05-07] MEDS ORDERED: SODIUM CHLORIDE 0.9% 250ML 250 ML ONE ×3 (10:57→20:44)
[2019-05-07] MEDS ORDERED: VANCOMYCIN HCL INJ 500 MG VIAL ONE ×3 (10:57→20:44)
[2019-05-07] MEDS ORDERED: VANCOMYCIN HCL INJ 1,000 MG VIAL IVPB ONE ×3 (10:58→20:45)
[2019-05-07] MEDS: VANCOMYCIN HCL INJ 1,000 MG, VANCOMYCIN HCL INJ 250 MG in SODIUM CHLORIDE 0.9% 250ML 25... IVPB SCH ×2 (11:10→23:56)
[2019-05-07] MEDS: MELATONIN 3 MG TAB PO PRN (20:51)
[2019-05-07] MEDS: INSULIN DETEMIR 100 UNITS/ML PEN SUBCU SCH (21:00)
[2019-05-08] MEDS: METHYLPHENIDATE HCL 5 MG PO SCH ×2 (06:18→11:45)
[2019-05-08] MEDS: SUCRALFATE 1 GM TAB PO SCH ×4 (06:18→20:45)
[2019-05-08] MEDS ORDERED: VANCOMYCIN HCL INJ 500 MG VIAL ONE (07:41)
[2019-05-08] MEDS ORDERED: SODIUM CHLORIDE 0.9% 250ML 250 ML ONE (07:41)
[2019-05-08] MEDS ORDERED: SODIUM CHL 0.9% 100ML MINI-BAG 100 ML IVPB ONE (07:43)
[2019-05-08] MEDS ORDERED: VANCOMYCIN HCL INJ 1,000 MG VIAL IVPB ONE (07:44)
[2019-05-08] MEDS: ASPIRIN (ENTERIC COATED) 81 MG TAB PO SCH (08:10)
[2019-05-08] MEDS: TAMSULOSIN 0.4 MG CAP PO SCH (08:10)
[2019-05-08] MEDS: GABAPENTIN 300 MG CAP PO SCH ×3 (08:11→20:45)
[2019-05-08] MEDS: VENLAFAXINE XR 75 MG CAP PO SCH (08:11)
[2019-05-08] MEDS: CELECOXIB 100 MG CAP PO SCH ×2 (08:11→20:45)
[2019-05-08] MEDS: DOCUSATE SODIUM 100 MG CAP PO SCH ×2 (08:11→20:45)
[2019-05-08] MEDS: FAMOTIDINE 20 MG TAB PO SCH ×2 (08:11→20:45)
[2019-05-08] MEDS: amLODIPine BESYLATE 5 MG TAB PO SCH (08:11)
[2019-05-08] MEDS: LACTOBACILLUS 1 TAB PO SCH ×2 (08:12→20:46)
[2019-05-08] MEDS: INSULIN LISPRO 100 UNITS/ML PEN SUBCU SCH ×4 (08:12→20:48)
[2019-05-08] MEDS: FERROUS SULFATE 325 MG TAB PO SCH (08:12)
[2019-05-08] MEDS: TETRAHYDROZOLINE HCL OPHTH SOL 1 DROP BOTH_EYES SCH ×2 (08:13→20:45)
[2019-05-08] MEDS: ENOXAPARIN SODIUM 40 MG/0.4 ML SYG SUBCU SCH (08:13)
[2019-05-08] MEDS: NUTRITIONAL SUPPLEMENTS PO SCH ×2 (08:13→20:46)
[2019-05-08] MEDS: cefTRIAXone SODIUM 2 GM in SODIUM CHL 0.9% 100ML MINI-BAG 100 ML IVPB SCH (08:41)
[2019-05-08] MEDS: POLYETHYLENE GLYCOL 3350 17 GM PCKT PO SCH (08:43)
[2019-05-08] MEDS: VANCOMYCIN HCL INJ 1,000 MG, VANCOMYCIN HCL INJ 250 MG in SODIUM CHLORIDE 0.9% 250ML 25... IVPB SCH (09:54)
--- NOTE | 2019-05-08 13:27 | PN ---
SUPERVISING PHYSICIAN: Abdoulaye Fermin MD DATE: 05/08/19 SUBJECTIVE: The patient continues to do well. He has finished up his 14 days of antibiotics to include vancomycin and Rocephin and will transition to doxycycline and cefpodoxime for another 4 weeks of coverage. He has had no nausea, vomiting or diarrhea. He has been cleared for 50% weightbearing for 2 weeks and then will hope to transition to full weightbearing at that point. We are still awaiting a final referral to [facility]. OBJECTIVE: VITAL SIGNS: He remains afebrile with temperature 97.8. Pulse 56. Blood pressure 157/78. Respirations 20. Oxygen saturation 90% on room air. GENERAL: The patient is resting comfortably, appears in no distress. He is alert and oriented. CHEST: Lung sounds are clear to auscultation. HEART: Regular rate and rhythm. ABDOMEN: Soft, nontender. Positive bowel sounds. The suture in his abdomen has been removed. The wound is looking clean and open to air. EXTREMITIES: Trace edema bilaterally, dependent. NEUROLOGIC: Alert and oriented times three. LABORATORY: No new laboratory since admission to Swing Bed. Blood sugars remain stable between 75 and 150. MICROBIOLOGY: Last set of blood sugars on admission to Swing Bed on 05/03/19 have been negative after 5 days. ASSESSMENT: 1. Bacteremia secondary to infection caused by Klebsiella with final culture results showing Klebsiella oxytoca from urinary tract infection with a history of methicillin- resistant Staphylococcus aureus to the umbilicus laparotomy incision with the patient having been treated with meropenem and vancomycin on Acute Care and finished 14 days of ceftriaxone and Rocephin, now transitioned to oral therapy with doxycycline and cefpodoxime for an additional 4 weeks of antibiotic coverage. 2. Urinary tract infection with final culture results showing Klebsiella pneumoniae with sensitivity pattern as in #1. 3. Status post traumatic fall with previous open book pelvic fracture with internal fixation of pubic symphysis and superior pubic rami with screw and plate fixation, with previous exploratory laparotomy with no other acute findings and a previous infection with methicillin-resistant Staphylococcus aureus to the umbilical surgical incision, responding to antibiotic therapy. 4. Hypertension, stable. 5. Diabetes mellitus, type 2, stable. 6. History of previous subarachnoid bleeds status post same level fall associated with other additional cerebrovascular accidents with cerebellar stroke from multiple head trauma, currently having been in rehabilitation with speech, occupational and physical therapy. 7. Strabismus from resultant previous fall and head injury having been followed by ophthalmology with associated double vision utilizing eye patch with no complications. PLAN: Mr. Del Cid has completed his IV course of parenteral antibiotics including Rocephin and vancomycin for 14 days and is now being transitioned to oral therapy with doxycycline and cefpodoxime for an additional 4 weeks to equal total coverage of 6 weeks. He has been doing well with his physical therapy. He has been cleared for 50% weightbearing for 2 weeks and then can go to full weightbearing at that point. We are awaiting final okay for placement at [facility]. He has been on an 1800 calorie diet. He has had no complications and no nausea or vomiting. Until the patient can transition to outpatient management, we will continue to monitor and treat as needed. #[id number] [facility]
[2019-05-08] MEDS: HYDROcodone 10MG/APAP 325MG 1 EA TAB PO PRN (17:30)
[2019-05-08] MEDS: MELATONIN 3 MG TAB PO PRN (20:55)
[2019-05-08] MEDS: INSULIN DETEMIR 100 UNITS/ML PEN SUBCU SCH (20:56)
[2019-05-08] MEDS: cloNIDine HCL 0.1 MG TAB PO PRN (21:10)
[2019-05-09] MEDS: SUCRALFATE 1 GM TAB PO SCH ×4 (06:35→20:41)
[2019-05-09] MEDS: INSULIN LISPRO 100 UNITS/ML PEN SUBCU SCH ×4 (07:49→21:00)
[2019-05-09] MEDS: METHYLPHENIDATE HCL 5 MG PO SCH ×2 (08:00→11:19)
[2019-05-09] MEDS: FERROUS SULFATE 325 MG TAB PO SCH (08:02)
[2019-05-09] MEDS: GABAPENTIN 300 MG CAP PO SCH ×3 (08:02→20:41)
[2019-05-09] MEDS: TAMSULOSIN 0.4 MG CAP PO SCH (08:02)
[2019-05-09] MEDS: VENLAFAXINE XR 75 MG CAP PO SCH (08:02)
[2019-05-09] MEDS: FAMOTIDINE 20 MG TAB PO SCH ×2 (08:02→20:41)
[2019-05-09] MEDS: SCOPOLAMINE PATCH 1.5MG 1 EA TD SCH (08:02)
[2019-05-09] MEDS: LACTOBACILLUS 1 TAB PO SCH ×2 (08:03→20:42)
[2019-05-09] MEDS: ASPIRIN (ENTERIC COATED) 81 MG TAB PO SCH (08:03)
[2019-05-09] MEDS: ENOXAPARIN SODIUM 40 MG/0.4 ML SYG SUBCU SCH (08:03)
[2019-05-09] MEDS: DOCUSATE SODIUM 100 MG CAP PO SCH ×2 (08:03→20:41)
[2019-05-09] MEDS: amLODIPine BESYLATE 5 MG TAB PO SCH (08:03)
[2019-05-09] MEDS: CELECOXIB 100 MG CAP PO SCH ×2 (08:03→20:41)
[2019-05-09] MEDS: TETRAHYDROZOLINE HCL OPHTH SOL 1 DROP BOTH_EYES SCH ×2 (08:03→20:42)
[2019-05-09] MEDS: POLYETHYLENE GLYCOL 3350 17 GM PCKT PO SCH (08:25)
[2019-05-09] MEDS: NUTRITIONAL SUPPLEMENTS PO SCH ×2 (08:25→20:43)
[2019-05-09] MEDS: CEFPODOXIME PROXETIL 200 MG PO SCH ×2 (12:06→20:41)
[2019-05-09] MEDS: DOXYCYCLINE HYCLATE CAP 100 MG CAP PO SCH ×2 (12:06→20:43)
[2019-05-09] MEDS: INSULIN DETEMIR 100 UNITS/ML PEN SUBCU SCH (20:59)
[2019-05-10 02:08] VITALS: O2SAT 95
[2019-05-10] MEDS: SUCRALFATE 1 GM TAB PO SCH (06:34)
[2019-05-10] MEDS: METHYLPHENIDATE HCL 5 MG PO SCH (07:13)
[2019-05-10] MEDS: INSULIN LISPRO 100 UNITS/ML PEN SUBCU SCH (07:14)
[2019-05-10] MEDS: FERROUS SULFATE 325 MG TAB PO SCH (07:14)
[2019-05-10] MEDS: GABAPENTIN 300 MG CAP PO SCH (08:56)
[2019-05-10] MEDS: LACTOBACILLUS 1 TAB PO SCH (08:56)
[2019-05-10] MEDS: POLYETHYLENE GLYCOL 3350 17 GM PCKT PO SCH (08:56)
[2019-05-10] MEDS: VENLAFAXINE XR 75 MG CAP PO SCH (08:57)
[2019-05-10] MEDS: DOCUSATE SODIUM 100 MG CAP PO SCH (08:57)
[2019-05-10] MEDS: CELECOXIB 100 MG CAP PO SCH (08:57)
[2019-05-10] MEDS: DOXYCYCLINE HYCLATE CAP 100 MG CAP PO SCH (08:57)
[2019-05-10] MEDS: amLODIPine BESYLATE 5 MG TAB PO SCH (08:57)
[2019-05-10] MEDS: ASPIRIN (ENTERIC COATED) 81 MG TAB PO SCH (08:57)
[2019-05-10] MEDS: TAMSULOSIN 0.4 MG CAP PO SCH (08:57)
[2019-05-10] MEDS: FAMOTIDINE 20 MG TAB PO SCH (08:57)
[2019-05-10] MEDS: ENOXAPARIN SODIUM 40 MG/0.4 ML SYG SUBCU SCH (08:58)
[2019-05-10] MEDS: TETRAHYDROZOLINE HCL OPHTH SOL 1 DROP BOTH_EYES SCH (08:58)
[2019-05-10] MEDS: CEFPODOXIME PROXETIL 200 MG PO SCH (08:59)
[2019-05-10] MEDS: NUTRITIONAL SUPPLEMENTS PO SCH (09:16)
[2019-05-10 09:26] VITALS: BP 162/75; TEMP 98
--- NOTE | 2019-05-10 20:25 | DS ---
SUPERVISING PHYSICIAN: Abdoulaye Fermin M.D. ADMISSION DIAGNOSIS: 1. Bacteremia secondary to urinary tract infection caused by Klebsiella oxytoca also with a history of MRSA to umbilicus laparotomy with the patient showing good response to Meropenem and vancomycin requiring an additional 14 days of Ceftriaxone based off sensitivity reports and then an additional 4 weeks of oral therapy doxycycline and cefpodoxime for total of 6 weeks of antibiotic coverage . 2. Urinary tract infection secondary to Klebsiella pneumoniae. 3. Status post traumatic fall with open book pelvis fracture with internal fixation of pubic symphysis and superior pubic rami with screw and plate fixation, and exploratory laparotomy with no other acute findings and noted drainage, questionable infection of the laparotomy site around the umbilicus awaiting surgical results. 4. Hypertension. 5. Diabetes mellitus, type 2. 6. Previous open book pelvic fracture with stabilization open reduction and internal fixation of the left sacroiliac joint with the patient having limited weightbearing capacity until cleared by orthopedic at [facility] this coming Sunday requiring ongoing physical therapy for Swing Bed admission. 7. 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 8. 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 DISCHARGE DIAGNOSIS: 1. Bacteremia secondary to infection caused by Klebsiella with final culture results showing Klebsiella oxytoca from urinary tract infection with a history of methicillin- resistant Staphylococcus aureus to the umbilicus laparotomy incision with the patient having been treated with meropenem and vancomycin on Acute Care and finished 14 days of ceftriaxone and Rocephin, now transitioned to oral therapy with doxycycline and cefpodoxime for an additional 4 weeks of antibiotic coverage. 2. Urinary tract infection with final culture results showing Klebsiella pneumoniae with sensitivity pattern as in #1. 3. Status post traumatic fall with previous open book pelvic fracture with internal fixation of pubic symphysis and superior pubic rami with screw and plate fixation, with previous exploratory laparotomy with no other acute findings and a previous infection with methicillin-resistant Staphylococcus aureus to the umbilical surgical incision, responding to antibiotic therapy. 4. Hypertension, stable. 5. Diabetes mellitus, type 2, stable. 6. History of previous subarachnoid bleeds status post same level fall associated with other additional cerebrovascular accidents with cerebellar stroke from multiple head trauma, currently having been in rehabilitation with speech, occupational and physical therapy. 7. Strabismus from resultant previous fall and head injury having been followed by ophthalmology with associated double vision utilizing eye patch with no complications. REASON FOR HOSPITALIZATION: Mr. Del Cid is a 69 year-old male patient who has a long history over the last month that starts with him having a significant fall off of a ladder on March 10 resulting in an open book pelvic fracture. He was sent to [place] and then flown to [facility] where they did an exploratory laparotomy with no findings and internal fixation of a pelvic fracture. He was in ICU for 2 weeks and had 2 separate brain bleeds as well as cerebellar strokes. He has had some issues with double vision and some paresthesias on both upper extremities which has contributed to some trauma to the C6 and C7 area as well as he supposedly was diagnosed with spinal shock. After leaving [facility] he was sent to [facility] on the 24 of March and stayed there until the 18 of April, and then went to [facility] in [place] for a week and then last night was sent to the E. R. via 911 due to the fact that he was having some chills and shivers, and his felt that he was confused. On presentation to the E. R., it was noted by the that the patient was back to his normal mentation. The patient was denying and chest pains, shortness of breath, meningeal signs, headaches, abdominal pains or dysuria. The patient was noting that he "felt normal." Except for the fever, he had no other further complaints. On workup, it was found that he had a mild leukocytosis and a left shift with a white count of 12,100, hemoglobin 12, hematocrit 35.9. Chemistries were all within normal limits with creatinine 0.86. Liver functions were all normal. Lactic acid was 1.8. Calcium was normal at 9.4, however his urine showed a moderate amount of blood and leukocyte esterase with microscopic revealing 30 to 40 WBCs with 4+ bacteria and no epithelial cells. It was also noted on exam that the patient had some drainage coming from his umbilical area from where they had done the exploratory laparotomy. His noted that they had been treating at the rehab with wound VAC and it had been draining, and that she thought they had left 1 stitch in there. The patient vital signs did show that he was febrile on admission with a temperature of 103.8 with a heart rate at 115, blood [id number] and was showing 20 respirations with 93% on room air saturation. He was given Tylenol which did result in the normalization of his temperature. 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 There was also question of whether or not he has an abdominal infection or abscess in the region of the laparotomy incision, so a CT of the abdomen was completed with contrast and there was note per radiology interpretation normal CT exam of the pelvis and abdomen with just postsurgical changes noted within the bony pelvis. He then had a CT of the head given that he has had a previous subarachnoid bleed, the 2 cerebellar strokes and the confusion initially on presentation, and noted by Radiology there was decreased attenuation of the left inferior cerebellum suggestive of encephalomalacia or ischemic stroke. The patient had 1 episode of projective vomiting and according to his he had had an issue while he was in rehab with questionable ileus. At this point the E. R. physician felt like the patient could not be completely ruled out and placed an NG tube. The patient did well through his Acute Care stay. Mr. Del Cid was admitted to Acute Care for initiation of antibiotics for the urinary tract infection and again noted on his laboratory studies while on Acute Care he was found to have bacteremia secondary to Klebsiella pneumoniae and urinary tract infection due to Klebsiella oxytoca, and MRSA infection of the laparotomy incision. He was placed on antibiotics with Meropenem and then transitioned based off sensitivity reports to Ceftriaxone and continued on vancomycin and he clinically improved. He had a PICC line placed and given the fact that he needs an additional 14 days based off Infectious Disease consultation with Dr. Curiel, he will be admitted to Swing Bed program. He is going to see his surgeons at [facility] this coming Sunday and as soon as he is released and a plan is in place Dr. Camarena will continue to follow the patient for physical therapy and rehabilitation efforts. The patient is going to be admitted to Swing Bed. He is in stable condition at time of Swing Bed admission. LABORATORY STUDIES: On admission to Swing Bed showed hemoglobin 10.9, hematocrit 32.1, platelet count 268,000. Differential is without a left shift. White count was normal at 5,900. Chemistry on admission to [facility] showed just a mildly low potassium at 3.2, otherwise within normal limits. Electrolytes and liver functions were all within normal limits. Blood sugars were showing well controlled between 75 up to 150. Urinalysis showed to be within normal limits. He had 2 vancomycin toughs, the last one being on 05/08/19 which was 19.3. RADIOLOGY: No additional radiographic studies on Swing Bed. HOSPITAL COURSE: Mr. Del Cid was admitted to [facility] on 05/02/19 for ongoing antibiotics for 14 days with vancomycin and Rocephin as well as physical therapy. He had no complains from antibiotics. He finished a 14 day course of both vancomycin and Rocephin and was transitioned to Cefpodoxime and doxycycline for an additional 4 week coverage. It was felt that he had done well enough with antibiotics and continued oral that he could transition back to SNF for continued physical therapy. PLAN: Mr. Del Cid was discharged to [facility] on 05/10/19 for continued physical therapy efforts. He is to followup with Dr. Fermin as well as his surgeon at [facility]. His activity is as per Physical Therapy, toe touch for an additional week at which time he can go to 50% weightbearing. All medications as per medical administration record with prescription medications includin. Norvasc. 2. Lisinopril. 3. Antibiotic coverage for 4 weeks with Cefpodoxime and doxycycline. Condition on discharge is stable and improved. DISPOSITION: The patient is discharged to [facility]. #[id number] [facility]
== END 2019-05-10 10:49 | DRG 872 ==
LOC: MS 13:45 → UNDOADMIN 13:45 → MS 05-06 12:27
PROVIDERS: ADMIT Nurse Practitioner Family; ATTEND Nurse Practitioner Family
DX: R78.81 Bacteremia (principal); N39.0 Urinary tract infection, site not specified; B96.1 Klebsiella pneumoniae [K. pneumoniae] as the cause of diseases classified elsewhere; Z86.14 Personal history of Methicillin resistant Staphylococcus aureus infection; I10 Essential (primary) hypertension; E11.9 Type 2 diabetes mellitus without complications; I69.898 Other sequelae of other cerebrovascular disease; H50.9 Unspecified strabismus; S06.9X0S Unspecified intracranial injury without loss of consciousness, sequela; S32.9XXD Fracture of unspecified parts of lumbosacral spine and pelvis, subsequent encounter for fracture with routine healing; Z79.4 Long term (current) use of insulin; Z79.82 Long term (current) use of aspirin; Z79.891 Long term (current) use of opiate analgesic; Z79.899 Other long term (current) drug therapy; F17.290 Nicotine dependence, other tobacco product, uncomplicated

== ENCOUNTER → 2019-06-02 | Outpatient (CLI) | payer MEDICARE, OTHER ==
--- NOTE | 2019-06-02 09:15 | RAD ---
EXAM DESCRIPTION: Pelvis CLINICAL HISTORY: 69 years Male, PAIN IN RIGHT AND LEFT HIP COMPARISON: 04/25/2019 Findings: Left sacroiliac arthrodesis screw. Pubic symphysis plate and screw fixation again noted. No hardware complication is identified. Partially visualized multilevel lumbar spondylosis. Soft tissues are unremarkable. Mild left and moderate right hip osteoarthritis. No acute fracture or dislocation is identified. IMPRESSION: Chronic and degenerative changes. No evidence of acute process. Electronically signed by: Bishnu Ritchie MD 06/02/2019 9:13 AM [facility]
== END ==
LOC: RAD 08:45
PROVIDERS: ATTEND Orthopaedic Surgery
DX: M16.0 Bilateral primary osteoarthritis of hip (principal); M47.896 Other spondylosis, lumbar region; Z98.1 Arthrodesis status

== ENCOUNTER → 2019-06-30 | Outpatient (CLI) | payer MEDICARE, OTHER ==
--- NOTE | 2019-06-30 15:16 | RAD ---
EXAM DESCRIPTION: Pelvis CLINICAL HISTORY: 69 years Male, MULTIPLE FRACTURES OF PELVIS WITH STABLE DISRUPTION OF PELV. RING COMPARISON: 06/02/2019. TECHNIQUE: AP radiograph of the pelvis was performed. FINDINGS: Changes of surgical fixation of the pubic symphysis and left sacroiliac joint are noted. No acute fracture or dislocation. The pelvic ring is intact. Mild degenerative changes are identified in the bilateral hip joints. Enthesopathy changes of the bilateral iliac crests. IMPRESSION: Postsurgical changes are again identified in the pelvis. Single radiograph demonstrates grossly intact pelvic ring. Electronically signed by: Celena Bills MD 06/30/2019 3:15 PM [facility]
== END ==
LOC: RAD 11:22
PROVIDERS: ATTEND Orthopaedic Surgery
DX: S32.810D Multiple fractures of pelvis with stable disruption of pelvic ring, subsequent encounter for fracture with routine healing (principal); Z98.890 Other specified postprocedural states

== ENCOUNTER → 2019-08-11 | Outpatient (CLI) | payer MEDICARE, OTHER ==
--- NOTE | 2019-08-11 13:27 | RAD ---
EXAM DESCRIPTION: Pelvis,2 or More Views CLINICAL HISTORY: 69 years Male, FRACTURE OF PELVIC RING WITH COMPLETE DISRUPTION OF POSTERIOR ARC COMPARISON: 06/30/2019 TECHNIQUE: 2 view radiograph of the pelvis and hips. IMPRESSION: Stable orthopedic screw traversing the left SI joint and sacrum. Stable fixation hardware overlying the pubic joint. No hardware complication such as fracture or migration. 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 Mild arthrosis of the hip. Lumbar spondylosis. Electronically signed by: Jeff Harris MD 08/11/2019 1:21 PM [facility]
== END ==
LOC: RAD 11:09
PROVIDERS: ATTEND Orthopaedic Surgery
DX: S32.810D Multiple fractures of pelvis with stable disruption of pelvic ring, subsequent encounter for fracture with routine healing (principal); M16.10 Unilateral primary osteoarthritis, unspecified hip; M47.898 Other spondylosis, sacral and sacrococcygeal region; M47.896 Other spondylosis, lumbar region; Z98.890 Other specified postprocedural states